=== PATIENT | female | born 1995 | race Caucasian/White ===

== ENCOUNTER 2020-10-17 13:23 | Emergency (ER) | payer OTHER ==
[~2020-10-17] VITALS: Ht 170.2 cm; Wt 70.5 kg
[2020-10-17] MEDS ORDERED: SCOP1PAT2 TOP (13:32)
[2020-10-17] MEDS ORDERED: REGL10TA6 PO (13:32)
[2020-10-17] MEDS ORDERED: NS 1,000 ML IV ONE ×2 (14:30→17:00)
[2020-10-17 15:30] VITALS: BP 118/67
[2020-10-17] MEDS ORDERED: PROMETHAZINE 25MG SUPP PR ONE (16:00)
[2020-10-17 17:33] LABS: BASO % 0.3 % (0.0-1.0); EOS % 0.4 % (0.0-3.0); HEMOGLOBIN 13.2 g/dl (12.0-15.5); LYMPH # 1.8 10^3/uL (1.5-5.0); LYMPH % 19.8 % (24.0-44.0); MEAN CORPUSCULAR HEMOGLOBIN 30.3 pg (27.0-33.0); MONO # 0.5 10^3/uL (0.0-0.8); MONO % 5.4 % (0.0-5.0); NEUTROPHILS # 6.7 10^3/uL (1.5-8.5); NEUTROPHILS % 73.7 % (36.0-66.0); PLATELET COUNT, AUTOMATED 241 10^3/uL (150-450); RED BLOOD COUNT 4.35 10^6/uL (4.00-5.40); WHITE BLOOD COUNT 9.1 10^3/uL (4.0-10.0)
[2020-10-17 18:38] LABS: ALBUMIN 3.9 GM/DL (3.2-5.2); BILIRUBIN,DIRECT 0.1 MG/DL (0.0-0.2); BILIRUBIN,TOTAL 0.5 MG/DL (0.2-1.0); TOTAL PROTEIN 6.8 GM/DL (6.4-8.2)
[2020-10-17] MEDS ORDERED: PROM25SU3 PR (18:45)
== END 2020-10-17 18:54 | disposition home or self-care (01) ==
LOC: M ED 13:23
DX: O21.9 Vomiting of pregnancy, unspecified (principal); O30.001 Twin pregnancy, unspecified number of placenta and unspecified number of amniotic sacs, first trimester; Z3A.01 Less than 8 weeks gestation of pregnancy; Z91.040 Latex allergy status; Z79.899 Other long term (current) drug therapy
CPT/HCPCS: 80047; 80076; 83690; 84702; 85025; 96360; 99284; U0002

== ENCOUNTER 2020-10-30 12:21 | Inpatient (IN) | payer OTHER ==
[~2020-10-30] VITALS: Ht 170.2 cm; Wt 65.0 kg
[~2020-10-30 12:21] MED LIST: PROM25SU3 PR; REGL10TA6 PO; SCOP1PAT2 TOP
[2020-10-30] MEDS ORDERED: ONDANSETRON 4MG/2ML VIAL IV ONE (13:00)
[2020-10-30] MEDS ORDERED: NS 1,000 ML IV ONE (13:00)
[2020-10-30] MEDS ORDERED: GLYCERIN ADULT SUPP PR ONE (13:00)
[2020-10-30 13:54] LABS: BASO % 0.4 % (0.0-1.0); EOS % 0.1 % (0.0-3.0); HEMATOCRIT 39.7 % (36.0-47.0); HEMOGLOBIN 13.5 g/dl (12.0-15.5); LYMPH % 12.5 % (24.0-44.0); MEAN CORPUSCULAR HEMOGLOBIN 30.5 pg (27.0-33.0); MEAN CORPUSCULAR VOLUME 89.8 fl (80.0-96.0); MONO # 0.4 10^3/uL (0.0-0.8); MONO % 4.6 % (0.0-5.0); NEUTROPHILS # 6.4 10^3/uL (1.5-8.5); PLATELET COUNT, AUTOMATED 228 10^3/uL (150-450); RED BLOOD COUNT 4.42 10^6/uL (4.00-5.40); WHITE BLOOD COUNT 7.8 10^3/uL (4.0-10.0)
--- NOTE | 2020-10-30 14:08 | REP ---
INDICATION: abd pain, 8 weeks. COMPARISON: None TECHNIQUE: Transvesical ultrasound FINDINGS: Two separate anechoic structures are seen within the uterus each having increased echoes surrounding them consistent with a decidual reaction. There is echogenic material within each gestational sac consistent with a pole. Fetus A having a mean crown-rump length measurement consistent with an 8 week 4 day gestational age. Doppler interrogation of fetus A shows a heart rate of 169 beats per minute The mean crown-rump length measurement of fetus B is consistent with an 8 week 2 day gestational age. Doppler interrogation of fetus B shows a heart rate of 163 beats per minute. IMPRESSION: Dichorionic diamniotic twin gestation as described above. <Electronically signed by Silverio Tuttle > 10/30/20 [id number]
[2020-10-30 14:35] LABS: ALBUMIN 3.9 GM/DL (3.2-5.2); ALT/SGPT 24 U/L (12-78); BILIRUBIN,DIRECT 0.2 MG/DL (0.0-0.2); BILIRUBIN,TOTAL 0.4 MG/DL (0.2-1.0); BLOOD UREA NITROGEN 13 MG/DL (7-18); CALCIUM LEVEL 9.2 MG/DL (8.5-10.1); CARBON DIOXIDE LEVEL 25 MEQ/L (21-32); CHLORIDE LEVEL 105 MEQ/L (98-107); CK-MB VALUE MASS < 1.0 NG/ML (<3.6); CPK CREATINE PHOSPHOKINASE 35 U/L (26-192); CREATININE FOR GFR 0.75 MG/DL (0.55-1.30); FREE T4 1.41 NG/DL (0.76-1.46); GLOMERULAR FILTRATION RATE > 60.0 (>60); GLUCOSE, FASTING 83 MG/DL (70-100); HCG, SERUM QUANTITATIVE 115713 MIU/ML; LIPASE 237 U/L (73-393); MB/CK RELATIVE INDEX 2.86 (< OR =4); POTASSIUM SERUM 3.8 MEQ/L (3.5-5.1); SODIUM LEVEL 137 MEQ/L (136-145); THYROID STIMULATING HORMONE 0.095 uIU/ML (0.358-3.740); TROPONIN I < 0.02 NG/ML (< 0.10)
[2020-10-30] MEDS ORDERED: METOCLOPRAMIDE INJ 10MG/2ML VIAL (J2765 PER 1) IV ONE (14:45)
[2020-10-30 14:51] LABS: AMPHETAMINES LEVEL URINE NEGATIVE (NEGATIVE); BARBITURATES URINE NEGATIVE (NEGATIVE); BENZODIAZEPINES URINE NEGATIVE (NEGATIVE); CANNABINOIDS URINE NEGATIVE (NEGATIVE); COCAINE METABOLITE URINE NEGATIVE (NEGATIVE); METHADONE URINE NEGATIVE (NEGATIVE); OPIATES URINE NEGATIVE (NEGATIVE); PHENCYCLIDINE URINE NEGATIVE (NEGATIVE)
[2020-10-30] MEDS ORDERED: MULTIVITAMIN -ADULT INJECTION 10 ML, THIAMINE INJection 100 MG, FOLIC ACID 1 MG in NS 1... IV ONE (15:45)
[2020-10-30 16:20] LABS: RSV AMPLIFICATION NEGATIVE (NEGATIVE)
[2020-10-30] MEDS ORDERED: PREN1TAB26 PO (16:46)
[2020-10-30] MEDS ORDERED: PROM25SU3 PR (16:46)
--- NOTE | 2020-10-30 19:07 | IPNPDOC ---
Text Note Date of Service The patient was seen on 10/30/20. NOTE Item Value Date Time Urine Color MARIA 10/30/20 1403 Urine Appearance CLOUDY H 10/30/20 1403 Urine pH 5.0 UNITS 10/30/20 1403 Urine Specific [place] 1.028 10/30/20 1403 Urine Protein 2+ mg/dL H 10/30/20 1403 Urine Glucose (UA) NEGATIVE mg/dL 10/30/20 1403 Urine Ketones 2+ mg/dL H 10/30/20 1403 Urine Blood NEGATIVE 10/30/20 1403 Urine Nitrite NEGATIVE 10/30/20 1403 Urine Bilirubin NEGATIVE 10/30/20 1403 Urine Urobilinogen 2.0 mg/dL H 10/30/20 1403 Urine Leukocyte Esterase NEGATIVE 10/30/20 1403 Urine WBC (Auto) 7 /HPF H 10/30/20 1403 Urine RBC (Auto) 2 /HPF 10/30/20 1403 Urine Hyaline Casts (Auto) 0 /LPF 10/30/20 1403 Urine Bacteria (Auto) NEGATIVE 10/30/20 1403 Urine Squamous Epithelial Cells 3 /HPF 10/30/20 1403 Urine Mucus (Auto) LARGE 10/30/20 1403 Bad table23 YO LMP 08/02/2021 EDC 06/10/2021 AT 8 WEEKS 5 DAYS DI/DI TWINS HYPEREMESIS SEEN IN ED X 3 VISITS. AT HOME HAS ZOFRAN, DICLEGESIS. SCOPOLAMINE PATCH, PHENERGAN SUPPOSITORIES REGLAN BIT STOPPED ALL WAS CONSTIPATED . IN ED 2 BAGS FLUID ONE BANANA BAG FELT BETTER STILL WANTS TO BE ADMITTED. CHEMISTRY NORMAL US NORMAL ANION GAP NORMAL ,NO MEDICAL ISSUES SURGERY T AND A AND WISDOM TEETH AD PHYSICAL THERAPY. PLAN ADMIT ,IV FLUIDS NAUSEA MEDS CONSTIPATION MEDS PO FLUIDS TOLERATED .. PATIENT EXPRESSED UNDERSTANDING IS COVID NEGATIVE VS,Fishbone, I+O VS, Fishbone, I+O Item Value Date Time White Blood Count 7.8 10^3/uL 10/30/20 1327 Red Blood Count 4.42 10^6/uL 10/30/20 1327 Hemoglobin 13.5 g/dl 10/30/20 1327 Hematocrit 39.7 % 10/30/20 1327 Mean Corpuscular Volume 89.8 fl 10/30/20 1327 Mean Corpuscular Hemoglobin 30.5 pg 10/30/20 1327 Mean Corpuscular Hemoglobin Concent 34.0 g/dl 10/30/20 132 Red Cell Distribution Width 12.0 % 10/30/201326 Platelet Count 228 10^3/uL 10/30/20 1327 Immature Granulocyte % (Auto) 0.4 % 10/30/20 1327 Neutrophils (%) (Auto) 82.0 % H 10/30/20 1327 Lymphocytes (%) (Auto) 12.5 % L 10/30/20 1327 Monocytes (%) (Auto) 4.6 % 10/30/20 1327 Eosinophils (%) (Auto) 0.1 % 10/30/20 1327 Basophils (%) (Auto) 0.4 % 10/30/20 1327 Neutrophils # (Auto) 6.4 10^3/uL 10/30/20 1327 Lymphocytes # (Auto) 1.0 10^3/uL L 10/30/20 1327 Monocytes # (Auto) 0.4 10^3/uL 10/30/20 1327 Eosinophils # (Auto) 0.0 10^3/uL 10/30/20 1327 Basophils # (Auto) 0.0 10^3/uL 10/30/20 1327 Laboratory Tests 10/30/20 13:27 Vital Signs Date Time Temp Pulse Resp B/P (MAP) Pulse Ox O2 Delivery O2 Flow Rate FiO2 10/30/20 17:22 97.8 73 18 111/63 (79) 100 Room Air INDICATION: abd pain, 8 weeks. COMPARISON: None TECHNIQUE: Transvesical ultrasound FINDINGS: Two separate anechoic structures are seen within the uterus each having increased echoes surrounding them consistent with a decidual reaction. There is echogenic material within each gestational sac consistent with a pole. Fetus A having a mean crown-rump length measurement consistent with an 8 week 4 day gestational age. Doppler interrogation of fetus A shows a heart rate of 169 beats per minute The mean crown-rump length measurement of fetus B is consistent with an 8 week 2 day gestational age. Doppler interrogation of fetus B shows a heart rate of 163 beats per minute. IMPRESSION: Dichorionic diamniotic twin gestation as described above. Miguel Toure MD Oct 30, 2020 19:04
[2020-10-30] MEDS: LR 1,000 ML IV SCH (19:26)
[2020-10-30] MEDS ORDERED: ONDANSETRON 4MG/2ML VIAL IV SCH (20:00)
[2020-10-30 21:45] VITALS: BP 118/67
[2020-10-30] MEDS: ONDANSETRON 4MG/2ML VIAL IV SCH (22:40)
[2020-10-31 01:00] VITALS: BP 104/59
[2020-10-31] MEDS: LR 1,000 ML IV SCH ×3 (02:46→15:54)
[2020-10-31] MEDS: ONDANSETRON 4MG/2ML VIAL IV SCH ×4 (04:55→23:53)
[2020-10-31 05:37] VITALS: BP 110/59
[2020-10-31] MEDS: MIRALAX *UNIT DOSE* 17GM PACKET PO SCH ×2 (07:33→08:13)
--- NOTE | 2020-10-31 08:12 | ECGEPIP ---
[facility] - ED Test Date: 2020-10-30 Pat Name: RICKY ZAVALA Department: Room: - Gender: Female Entrance Guard: ASHLEY : 1995 Requested By: SONIDO Madrid PA-C Order Number: [id number] Reading MD: Madhu Segovia Measurements Intervals [place] Rate: 64 P: 33 NM: 148 QRS: 65 QRSD: 92 T: 32 QT: 407 QTc: 421 Interpretive Statements SINUS RHYTHM WITH OCCASIONAL VENTRICULAR PREMATURE COMPLEXES NSTTW ABNORMALITY(S) NO PRIORS FOR COMPARISON Electronically Signed on 10-31-2020 8:12:15 EST by Madhu Segovia
[2020-10-31] MEDS: MULTIVITAMIN -ADULT INJECTION 10 ML, THIAMINE INJection 100 MG, FOLIC ACID 1 MG in NS 1... IV SCH (08:13)
[2020-10-31 08:15] VITALS: BP 110/61
[2020-10-31 08:39] LABS: ALBUMIN 2.9 GM/DL (3.2-5.2); ALT/SGPT 18 U/L (12-78); BILIRUBIN,TOTAL 0.5 MG/DL (0.2-1.0); BLOOD UREA NITROGEN 5 MG/DL (7-18); CALCIUM LEVEL 8.1 MG/DL (8.5-10.1); CARBON DIOXIDE LEVEL 22 MEQ/L (21-32); CHLORIDE LEVEL 107 MEQ/L (98-107); GLOMERULAR FILTRATION RATE > 60.0 (>60); GLUCOSE, FASTING 68 MG/DL (70-100); POTASSIUM SERUM 3.5 MEQ/L (3.5-5.1); SODIUM LEVEL 140 MEQ/L (136-145); TOTAL PROTEIN 5.3 GM/DL (6.4-8.2)
[2020-10-31 16:00] VITALS: BP 106/60
[2020-10-31 20:00] VITALS: BP 112/61
[2020-11-01] VITALS: BP 102/63
[2020-11-01] MEDS: LR 1,000 ML IV SCH ×3 (00:58→17:01)
[2020-11-01] MEDS: ONDANSETRON 4MG/2ML VIAL IV SCH ×2 (05:42→10:47)
[2020-11-01 06:00] VITALS: BP 104/64
[2020-11-01] MEDS: MULTIVITAMIN -ADULT INJECTION 10 ML, THIAMINE INJection 100 MG, FOLIC ACID 1 MG in NS 1... IV SCH (08:00)
[2020-11-01 08:29] LABS: ALT/SGPT 20 U/L (12-78); BILIRUBIN,TOTAL 0.5 MG/DL (0.2-1.0); BLOOD UREA NITROGEN 2 MG/DL (7-18); CALCIUM LEVEL 8.4 MG/DL (8.5-10.1); CARBON DIOXIDE LEVEL 24 MEQ/L (21-32); CHLORIDE LEVEL 106 MEQ/L (98-107); CREATININE FOR GFR 0.56 MG/DL (0.55-1.30); GLOMERULAR FILTRATION RATE > 60.0 (>60); GLUCOSE, FASTING 70 MG/DL (70-100); POTASSIUM SERUM 3.3 MEQ/L (3.5-5.1); SODIUM LEVEL 141 MEQ/L (136-145); TOTAL PROTEIN 5.5 GM/DL (6.4-8.2)
[2020-11-01] MEDS: MIRALAX *UNIT DOSE* 17GM PACKET PO SCH (08:45)
[2020-11-01] MEDS ORDERED: DOCU8.6T PO (11:37)
[2020-11-01] MEDS ORDERED: ONDA4INJ4 IV (11:37)
[2020-11-01] MEDS ORDERED: PEG1POW PO (11:37)
[2020-11-01] MEDS ORDERED: PILL CUTTER 1 EACH XX PRN (12:15)
[2020-11-01] MEDS: PROMETHAZINE 25 MG TAB PO PRN ×2 (12:27→18:37)
[2020-11-01 13:55] VITALS: BP 105/57
[2020-11-01] MEDS: ONDANSETRON 4 MG TAB PO SCH ×2 (16:37→22:08)
[2020-11-01 18:42] VITALS: BP 113/63
[2020-11-01 19:56] VITALS: BP 112/69
[2020-11-02] MEDS: LR 1,000 ML IV SCH ×4 (00:29→23:50)
[2020-11-02 00:46] VITALS: BP 95/56
[2020-11-02] MEDS: ONDANSETRON 4 MG TAB PO SCH ×4 (04:13→22:10)
[2020-11-02 08:22] VITALS: BP 108/63
[2020-11-02 08:47] LABS: ALT/SGPT 18 U/L (12-78); BILIRUBIN,TOTAL 0.3 MG/DL (0.2-1.0); BLOOD UREA NITROGEN 2 MG/DL (7-18); CALCIUM LEVEL 8.5 MG/DL (8.5-10.1); CARBON DIOXIDE LEVEL 23 MEQ/L (21-32); CHLORIDE LEVEL 107 MEQ/L (98-107); CREATININE FOR GFR 0.58 MG/DL (0.55-1.30); GLOMERULAR FILTRATION RATE > 60.0 (>60); GLUCOSE, FASTING 82 MG/DL (70-100); POTASSIUM SERUM 3.7 MEQ/L (3.5-5.1); SODIUM LEVEL 140 MEQ/L (136-145); TOTAL PROTEIN 5.4 GM/DL (6.4-8.2)
[2020-11-02] MEDS: MIRALAX *UNIT DOSE* 17GM PACKET PO SCH (09:10)
[2020-11-02] MEDS: MECLIZINE 25 MG TABLET PO PRN (15:00)
[2020-11-02 16:00] VITALS: BP 107/63
--- NOTE | 2020-11-02 18:31 | IPNPDOC ---
Text Note Date of Service The patient was seen on 11/02/20. NOTE Patient seen this evening. Saamra reports improved nausea; zofran seems to work best for her. Dizziness is still present, and she describes it as a "head hunter" sensation along with a room spinning sensation. I ordered meclizine for her earlier today and she reports this has somewhat improved her dizziness. Vitals - VSS, afebrile, normotensive, non tachycardic General - Standing at the bedside with RN, pleasant and conversant, NAD Extremities - No edema Labs Electrolytes stable Samara's nausea has improved but dizziness remains. She describes several near syncopal episodes prior to her hospital admission and this is a major concern for her as she lives alone in the [facility]. Her symptom history seems most consistent with vertigo (perhaps BPPV). Will continue with meclizine. If symptoms still present and/or worsening tomorrow AM, will consider neurology consultation. Samara understands and agrees with plan of care. All questions answered. DO ALONDRA Ferro Fishbone, I+O VS, Oseas, I+O Laboratory Tests 11/02/20 07:35 Vital Signs Date Time Temp Pulse Resp B/P (MAP) Pulse Ox O2 Delivery O2 Flow Rate FiO2 11/02/20 16:00 99.2 57 16 107/63 (78) 100 Room Air I&O- Last 24 Hours up to 6 AM 11/02/20 05:59 Intake Total 1478 ml Output Total 4250 ml Balance -2772 ml JEAN NAM DO Nov 02, 2020 18:31
[2020-11-02 20:00] VITALS: BP 114/66
[2020-11-03 04:00] VITALS: BP 100/59
[2020-11-03] MEDS: ONDANSETRON 4 MG TAB PO SCH ×4 (04:15→22:05)
[2020-11-03] MEDS: MECLIZINE 25 MG TABLET PO PRN ×2 (04:15→16:44)
--- NOTE | 2020-11-03 06:17 | IPNPDOC ---
Text Note Date of Service The patient was seen on 11/03/20. NOTE Patient seen this AM. Samara reports feeling slightly better this morning in terms of dizziness. However, last night when attempting to ambulate the hallway she reports only making it about 10 feet before nearly falling over. Nausea continues to be stable; zoan works best for her. Today she denies any fevers/chills, SOB, chest pain, dysuria, pelvic pain, or vaginal bleeding. Vitals - VSS, afebrile, normotensive (borderline hypotensive), non tachycardic General - Laying in bed, NAD Abdomen - No tenderness Extremities - No edema Labs: Pending CMP this morning Nausea seems to be well managed at this time. Biggest issue is dizziness. History suggestive of BPPV. She appears to be responding well to meclizine, though her symptoms are persisting. Will consult neurology this morning for evaluation. Otherwise, continue regular diet and antiemetics as prescribed. All patient questions answered. DO ALONDRA Ferro,Oseas, I+O VS, Oseas, I+O Laboratory Tests 11/02/20 07:35 Vital Signs Date Time Temp Pulse Resp B/P (MAP) Pulse Ox O2 Delivery O2 Flow Rate FiO2 11/03/20 04:00 97.8 55 16 100/59 (73) 100 Room Air I&O- Last 24 Hours up to 6 AM 11/03/20 06:00 Intake Total 4620 ml Output Total 6300 ml Balance -1680 ml JEAN NAM DO Nov 03, 2020 06:17
[2020-11-03] MEDS: LR 1,000 ML IV SCH (07:07)
[2020-11-03 07:59] LABS: ALT/SGPT 18 U/L (12-78); BILIRUBIN,TOTAL 0.2 MG/DL (0.2-1.0); BLOOD UREA NITROGEN 2 MG/DL (7-18); CALCIUM LEVEL 8.5 MG/DL (8.5-10.1); CARBON DIOXIDE LEVEL 24 MEQ/L (21-32); CHLORIDE LEVEL 107 MEQ/L (98-107); CREATININE FOR GFR 0.56 MG/DL (0.55-1.30); GLOMERULAR FILTRATION RATE > 60.0 (>60); GLUCOSE, FASTING 78 MG/DL (70-100); POTASSIUM SERUM 3.7 MEQ/L (3.5-5.1); SODIUM LEVEL 141 MEQ/L (136-145); TOTAL PROTEIN 5.5 GM/DL (6.4-8.2)
[2020-11-03 09:09] VITALS: BP 102/60
[2020-11-03] MEDS: MIRALAX *UNIT DOSE* 17GM PACKET PO SCH (09:27)
[2020-11-03 16:45] VITALS: BP 108/64
[2020-11-03 20:23] VITALS: BP 122/63
[2020-11-04 04:30] VITALS: BP 101/56
[2020-11-04] MEDS: ONDANSETRON 4 MG TAB PO SCH ×4 (04:30→22:32)
[2020-11-04] MEDS: MECLIZINE 25 MG TABLET PO PRN (04:30)
[2020-11-04 09:00] VITALS: BP 105/60
[2020-11-04] MEDS: MIRALAX *UNIT DOSE* 17GM PACKET PO SCH (09:28)
[2020-11-04 10:10] LABS: ALBUMIN 3.4 GM/DL (3.2-5.2); ALT/SGPT 19 U/L (12-78); BILIRUBIN,TOTAL 0.3 MG/DL (0.2-1.0); BLOOD UREA NITROGEN 4 MG/DL (7-18); CALCIUM LEVEL 8.9 MG/DL (8.5-10.1); CARBON DIOXIDE LEVEL 24 MEQ/L (21-32); CHLORIDE LEVEL 106 MEQ/L (98-107); CREATININE FOR GFR 0.64 MG/DL (0.55-1.30); GLOMERULAR FILTRATION RATE > 60.0 (>60); GLUCOSE, FASTING 83 MG/DL (70-100); POTASSIUM SERUM 3.9 MEQ/L (3.5-5.1); SODIUM LEVEL 139 MEQ/L (136-145); TOTAL PROTEIN 6.1 GM/DL (6.4-8.2)
--- NOTE | 2020-11-04 10:16 | REP ---
INDICATION: 25yo F currently with twins at 8wk with vertigo COMPARISON: None. TECHNIQUE: Axial noncontrast images from the skull base to the vertex with coronal reformations. This CT examination was performed using the following dose reduction techniques: Automated exposure control, adjustment of mA and/or kv according to the patient's size, and use of iterative reconstruction technique. FINDINGS: The ventricles, sulci, and cisterns are normal in position and appearance. Richard-white differentiation is maintained. No acute intracranial hemorrhage, mass/mass effect, pathology or trauma/injury. No evidence for acute infarction. No extra-axial fluid collection. Calvarium is intact. Paranasal sinuses and mastoid air cells are clear. IMPRESSION: No evidence for acute intracranial pathology or trauma/injury. If the patient remains symptomatic consider MRI for further investigation. <Electronically signed by Jose Mcclendon > 11/04/20 1012
--- NOTE | 2020-11-04 10:30 | IPNPDOC ---
Text Note Date of Service The patient was seen on 11/04/20. NOTE Ms. Copeland is a 25yo at 8+6 by 8wk US initially admitted for hyperemesis (now N/V resolved) with continued admission for investigation of sudden onset vertigo like symptoms. She reports that she cannot take more than a few steps without falling over to the side. She reports this happens equally on both sides. She states it feels like she cant set her foot down on the ground because "she is moving." She does not feel like the room is necessarily spinning. On ROS she states she has had headaches since her symptoms started, they are located behind her right eye and across her forehead. She states they do not feel like her migraines. She also stated she has occasionally had tunnel vision and spots in her vision but this has not happened in the past day. She denied n/v/d, cp, sob, varma, visual changes, abd pain, f/c, vb, lof, vaginal dc, urinary sx. 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, hsv, hpv MHX: MTHFR gene mutation, history of pelvic fracture, migraines SHX: T+A ALL: latex, natural rubber MEDS: SOC: denied a/t/d STUDIES 10/30/20 CBC 7.8/13/39 EKG PVCs TSH 0.095 T4 1.41 CMP unremarkable UA 2+ ketones UCx lactobacillus UDS negative COVID negative Flu negative RSV negative TVUS 8+2/8+4 +FHRx2 EXAM GEN: AAOx3, NAD CARDS: non-tachy PULM: no increased WOB ABD: NT, ND, no R/G EXTREM: NT, no edema, no clonus PSYCH: normal affect and insight NEURO EXAM: CN 2-12 in-tact, PERRLA, LE DTRs 2+, no alterations in sensation or muscle strength, normal rapid alternating movement, proprioception, and peripheral vision testing ASSESSMENT Ms. Copeland is a 25yo at 8+6 by 8wk US initially admitted for hyperemesis (now N/V resolved) with continued admission for investigation of sudden onset vertigo like symptoms. I called Dr. Pedroza (nurse receptionist for neurology today) and requested a consult. He instructed me to obtain a STAT CT of the head and if normal consult PT for vestibular therapy instead. I discussed with the patient that with shielding and it being a head CT there is very low risk but still technically a risk to her babies as she is in the 1T and the patient would like to proceed. On exam there were no neurologic abnormalities. I did not witness gait abnormalities when the patient ambulated the room. Her VS have been normal. As N/V has improved and she is PO tolerant will continue on current regimen. Plan - STAT CT head withouot contract per neuro, if normal consult to PT for vestibular therapy - continue current regimen for nausea control - continue regular diet - ambulation only with nursing assistance - SCDs while not ambulating - will continue meclizine per neuro Diana VS,Fishbone, I+O VS, Fishbone, I+O Vital Signs Date Time Temp Pulse Resp B/P (MAP) Pulse Ox O2 Delivery O2 Flow Rate FiO2 11/04/20 09:00 98.5 57 18 105/60 (75) 100 Room Air I&O- Last 24 Hours up to 6 AM 11/04/20 06:00 Intake Total 2950 ml Output Total 2900 ml Balance 50 ml NIDIA REEVES DO Nov 04, 2020 10:30
[2020-11-04 17:25] VITALS: BP 108/64
[2020-11-04 20:00] VITALS: BP 119/80
[2020-11-05 00:02] VITALS: BP 119/62
[2020-11-05 04:14] VITALS: BP 104/58
[2020-11-05] MEDS: ONDANSETRON 4 MG TAB PO SCH ×3 (05:01→16:00)
--- NOTE | 2020-11-05 07:00 | IPNPDOC ---
Text Note Date of Service The patient was seen on 11/05/20. NOTE Ms. Copeland is a 25yo at 9+0 by 8wk US initially admitted for hyperemesis (now N/V resolved) with continued admission for investigation of sudden onset vertigo like symptoms. She reports that she cannot take more than a few steps without falling over to the side. She reports this happens equally on both sides initially but now feels like it happens more to the right. She states it feels like she cant set her foot down on the ground because "she is moving." She does not feel like the room is necessarily spinning. On ROS she states she has had headaches since her symptoms started, they are located behind her right eye and across her forehead. Her only new symptom overnight is some blurring of her vision only in her right eye. She states they do not feel like her migraines. She also stated she has occasionally had tunnel vision and spots in her vision but this has not happened in the past day. She denied n/v/d, cp, sob, abd pain, f/c, vb, lof, vaginal dc, urinary sx. 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 Copeland is a 25yo at 9+0 by 8wk US initially admitted for hyperemesis (now N/V resolved) with continued admission for investigation of sudden onset vertigo like symptoms. I called Dr. Pedroza (neurology) and requested a consult and he saw the patient yesterday, recommendations pending. He instructed me to obtain a STAT CT of the head which was normal and consult PT for vestibu lar therapy. They reported they wanted her to hold the meclizine this morning to evaluate her symptom changes without it. Will proceed with this plan this morning and await further recommendations. Her VS have been normal. As N/V has improved and she is PO tolerant will continue on current regimen. Plan - awaiting further recommendations from neurology and PT - continue current regimen for nausea control - continue regular diet - ambulation only with nursing assistance - SCDs while not ambulating - will hold meclizine per PT this morning Diana VS,Geraldbone, I+O VS, Geraldbone, I+O Laboratory Tests 11/04/20 09:11 Vital Signs Date Time Temp Pulse Resp B/P (MAP) Pulse Ox O2 Delivery O2 Flow Rate FiO2 11/05/20 04:14 98.8 57 18 104/58 (73) 97 11/04/20 20:00 Room Air I&O- Last 24 Hours up to 6 AM 11/05/20 06:00 Intake Total 1560 ml Output Total 3950 ml Balance -2390 ml NIDIA REEVES DO Nov 05, 2020 07:00
[2020-11-05 08:09] LABS: ALBUMIN 3.2 GM/DL (3.2-5.2); ALT/SGPT 16 U/L (12-78); BILIRUBIN,TOTAL 0.4 MG/DL (0.2-1.0); BLOOD UREA NITROGEN 6 MG/DL (7-18); CALCIUM LEVEL 8.7 MG/DL (8.5-10.1); CARBON DIOXIDE LEVEL 24 MEQ/L (21-32); CHLORIDE LEVEL 105 MEQ/L (98-107); CREATININE FOR GFR 0.62 MG/DL (0.55-1.30); GLOMERULAR FILTRATION RATE > 60.0 (>60); GLUCOSE, FASTING 82 MG/DL (70-100); POTASSIUM SERUM 3.7 MEQ/L (3.5-5.1); SODIUM LEVEL 138 MEQ/L (136-145); TOTAL PROTEIN 5.9 GM/DL (6.4-8.2)
[2020-11-05 09:15] VITALS: BP 119/71
[2020-11-05] MEDS: MIRALAX *UNIT DOSE* 17GM PACKET PO SCH (09:47)
--- NOTE | 2020-11-05 12:40 | OBDS ---
[facility] Obstetrical Discharge Sum. Obstetrical Discharge Summary Date: Nov 05, 2020 Time: 12:30 : 1 Term: 0 Pre-term: 0 Abortions: 0 Livin A/P, Post Course List any complications Admission diagnosis: Hyperemesis, Di/Di twins Discharge diagnosis: Hyperemesis, Di/Di twins, vertigo Condition at Discharge: Stable Discharge Instructions: Home/other Activity: Rest with out of bed with walker Diet: Regular Medications: Zofran PO Follow-up: ENT with Dr. Chapa on 11/08/2020 at 1030 and in 1 week at [facility] Other: Referrals to PT for vestibular therapy given She is a 25 yo at 13w4d with HANK of 09 MAY 2021 who presented for hyperemesis with complicated by Di/Di twins. She developed sudden onset of vertigo like symptoms. She was evaluated by neurology with a normal CT and recommendations to have outpatient vestibular therapy. She was evaluated by PT with recommendations for a 2 wheeled walker and outpatient vestibular therapy. She will have outpatient consult with ENT on 11/08/2020 at 1030. She reports that zofran has worked well to control vomiting and she has been able to eat meals during her stay in the hospital. She will have follow up in [facility] clinic in 1 week[address] After discussion with Dr. Toure regarding patient status, she is to not return to work until she has been cleared by [facility]. I discussed all of these recommendations with the patient. I answered all of her questions and she verbalized understanding of the plan. Plan is to discharge to home No driving or operating any heavy machinery She may ambulate with the use of a walker or with assistance She is to keep all follow up appointments Recommended to continue her antinausea regimen while at home. She is to return if her symptoms worsen or persist. JAYJAY PENA CNM Nov 05, 2020 12:40
== END 2020-11-05 16:25 | disposition home or self-care (01) | DRG 833 ==
LOC: M ED 12:21 → M ED INP 18:33 → M PED 21:59
PROVIDERS: ADMIT Obstetrics & Gynecology; ATTEND Registered Nurse Maternal Newborn
DX: O21.0 Mild hyperemesis gravidarum (principal); Z3A.08 8 weeks gestation of pregnancy; O30.041 Twin pregnancy, dichorionic/diamniotic, first trimester; R42 Dizziness and giddiness; O26.891 Other specified pregnancy related conditions, first trimester

== ENCOUNTER 2020-11-19 13:51 | Observation (INO) | payer OTHER ==
[~2020-11-19] VITALS: Ht 170.2 cm; Wt 63.0 kg
[~2020-11-19 13:51] MED LIST changes: +DOCU8.6T PO; +ONDA4INJ4 IV; +PEG1POW PO; +PREN1TAB26 PO
--- OUTSIDE RECORDS SUMMARY | 2020-11-19 14:01 | CCD ---
Author Author [facility] Organization [facility] Address Unknown Phone Unavailable Care Team Providers Care Food Counter Worker Name Role Phone RAMONSoham BAH Unavailable Unavailable UNKNOWN, CLINIC JNU Unavailable Unavailable Re-disclosure Warning The records that you are about to access may contain information from federally-assisted alcohol or drug abuse programs. If such information is present, then the following federally mandated warning applies: This information has been disclosed to you from records protected by federal confidentiality rules (42 CFR part 2). The federal rules prohibit you from making any further disclosure of this information unless further disclosure is expressly permitted by the written consent of the person to whom it pertains or as otherwise permitted by 42 CFR part 2. A general authorization for the release of medical or other information is NOT sufficient for this purpose. The Federal rules restrict any use of the information to criminally investigate or prosecute any alcohol or drug abuse patient.The records that you are about to access may contain highly sensitive health information, the redisclosure of which is protected by Article 27-F of the [place] State Public Health law. If you continue you may have access to information: Regarding HIV / AIDS; Provided by facilities licensed or operated by the [facility] Office of Mental Health; or Provided by the [facility] Office for People With Developmental Disabilities. If such information is present, then the following [facility] mandated warning applies: This information has been disclosed to you from confidential records which are protected by state law. State law prohibits you from making any further disclosure of this information without the specific written consent of the person to whom it pertains, or as otherwise permitted by law. Any unauthorized further disclosure in violation of state law may result in a fine or assisted sentence or both. A general authorization for the release of medical or other information is NOT sufficient authorization for further disc losure. Encounters Encounter Providers Location Date Indications Data Source(s ) Emergency Attender: FRANCIA NAVARROJONOCOConsultant: JUN UNKNOWN 10/14/2020 01:41:00 PM EST - 10/14/2020 04:58:00 PM [facility] Patient discharged. Medications Medication Brand Name Start Date Product Form Dose Route Admi nistrative Instructions Pharmacy Instructions Status Indications Reaction Description Data Source(s) 5 mg 10/14/2020 12:00:00 AM EST tablet 6 TAKE ONE TABLET BY MOUTH EVERY EIGHT HOURS NEEDED FOR NAUSEA TAKE ONE TABLET BY MOUTH EVERY EIGHT MAADN RS NEEDED FOR NAUSEA SOLD: 10/14/2020 [facility] Insurance Providers Payer name Policy type / Coverage type Policy ID Covered libertarian ID Covered libertarian's relationship to oden Policy Oden Plan Information [facility] ACTIVE DUTY [id number] SP [id number] [employer] [facility] REG O [id number] S [id number] [facility] - O/P [id number] 18 [id number] Problems, Conditions, and Diagnoses Code Display Name Description Problem Type Effective Dates Data Source(s) A82954 Latex allergy status Latex allergy status Diagnosis 10/14/2020 01:41:00 PM [facility] Z3A10 10 weeks gestation of 10 weeks gestation of Diagnosis 10/14/2020 01:41:00 PM [facility] O219 Vomiting of , unspecified Vomiting of p regnancy, unspecified Diagnosis 10/14/2020 01:41:00 PM [facility] Results ID Date Data Source [id number] 10/30/2020 03:36:00 PM EST [facility] Name Value Range Interpretation Code Description Data Odette rce(s) Supporting Document(s) SARS coronavirus 2 RNA [Presence] in Res piratory specimen by NANCY with probe detection NEGATIVE [facility] This lab was ordered by [facility] a nd reported by [facility]. ID Date Data Source [id number] 10/19/2020 08:45:00 AM EST [facility] [address] [place] [address] PHONE: [phone] FAX: [phone] Name .................. : LUCAS GARCÍA Acct Number.................. : [id number] ROOM. ................. : [facility] Number ................... : [id number] Stay type ............. : E/R Discharge Date......... ... : 10/14/20 Admit Date ......... : 10/14/20 Admit Phys .................... : LATASHA Date of ....... : 1995 Family Phys ................... : UNKNOWN Phone .................. : [phone] Age ................................ : 25 Film# .................. .:[id number] Sex ................................. : F Unsigned transcriptions are preliminary reports and do not represent a medical or legal document US OB 1ST TRI UP TO 14 WEEKS 21026 COMPLETE:10/14/20 15:02 KNB 1674 Reason(s): NV abd pain 10 weks gestation US OB 1ST TRI UP TO 14 [place]KS [place] [address] COMPLETE:10/14/20 15:02 KNB 1678 (REASON FOR OBS: NV abd pain OBSTETRICAL ULTRASOUND, 10/14/20: FINDINGS: There is a viable diamniotic twin with estimated gestational ages of 6 weeks and 0 days. The estimated delivery date is June 09, 2021. Twin A has a heart rate of 116 beats per minute. Twin B has a heart rate of 120 beats per minute. Adjacent to twin B, tiny subchorionic hemorrhage is seen with maximal diameter of 4 mm. A 3.1 x 2.9 x 2.9 cm cyst is seen in the left ovary, likely benign corpus gluteal cyst. IMPRESSION: Viable diamniotic twin with estimated gestational ages of 6 weeks and 0 days. heart rate twin A 116 beats per minute. heart rate twin B 120 beats a minute. Tiny subchorionic bleed to twin B. A 3.1 cm cyst left ovary, likely benign corpus gluteal cyst. Electronically Reviewed and Signed By Martita Benitez MD , 10/19/20 08:45, KGG Transcribe Initials: KATHLEEN, Transcribe Date: 10/18/20 13:32, Dictation Date: Copy for: [facility] via fax Copy for: EMERGENCY DEPT via modem Copy for: 710 MED REC DISCHARGED Page 1 of 1 Name Value Range Interpretation Code Description Data Odette rce(s) Supporting Document(s) ID Date Data Source [id number] 10/19/2020 08:45:00 AM EST [facility] [address] [place] [address] PHONE: [phone] FAX: [phone] Name .................. : LUCAS GARCÍA Acct Number.................. : [id number] ROOM. ................. : TR-08 MR Number ................... : [id number] Stay type ............. : E/R Discharge Date......... ... : 10/14/20 Admit Date ......... : 10/14/20 Admit Phys .................... : RAMONNIURKA Date of ....... : 1995 Family Phys ................... : UNKNOWN Phone .................. : [phone] Age ................................ : 25 Film# .................. .:[id number] Sex ................................. : F Unsigned transcriptions are preliminary reports and do not represent a medical or legal document US OB 1ST TRI UP TO 14 WEEKS 17789 COMPLETE:10/14/20 15:02 KNB 1673 Reason(s): NV abd pain 10 weks gestation US OB 1ST TRI UP TO 14 WKS AD [address]40 COMPLETE:10/14/20 15:02 KNB 1678 (REASON FOR OBS: NV abd pain OBSTETRICAL ULTRASOUND, 10/14/20: FINDINGS: There is a viable diamniotic twin with estimated gestational ages of 6 weeks and 0 days. The estimated delivery date is June 09, 2021. Twin A has a heart rate of 116 beats per minute. Twin B has a heart rate of 120 beats per minute. Adjacent to twin B, tiny subchorionic hemorrhage is seen with maximal diameter of 4 mm. A 3.1 x 2.9 x 2.9 cm cyst is seen in the left ovary, likely benign corpus gluteal cyst. IMPRESSION: Viable diamniotic twin with estimated gestational ages of 6 weeks and 0 days. heart rate twin A 116 beats per minute. heart rate twin B 120 beats a minute. Tiny subchorionic bleed to twin B. A 3.1 cm cyst left ovary, likely benign corpus gluteal cyst. Electronically Reviewed and Signed By Martita in MD Eli , 10/19/20 08:45, KGG Transcribe Initials: SSR, Transcribe Date: 10/18/20 13:32, Dictation Date: Copy for: [facility] via fax Copy for: EMERGENCY DEPT via modem Copy for: 710 MED REC DISCHARGED Page 1 of 1 Name Value Range Interpretation Code Description Data Odette rce(s) Supporting Document(s) ID Date Data Source [id number] 10/17/2020 02:50:00 PM EST [facility] Name Value Range Interpretation Code Description Data Odette rce(s) Supporting Document(s) SARS coronavirus 2 RNA [Presence] in Res piratory specimen by NANCY with probe detection NEGATIVE [facility] This lab was ordered by [facility] a nd reported by [facility]. ID Date Data Source [id number] 10/14/2020 01:41:00 PM EST [facility] 1 OrderSheet [facility] Emergency Department [address] [place] [address] Phone #: [phone]- [phone] 10/14/2020 13:24 Patient: RICKY ZAVALA Sex: F : 1995 Age: 25yWEIGHT:71.4 kg (M) HEIGHT:67 inches (M) BMI:24.7ALLERGIES: Latex, No Known Drug AllergyCHIEF COMPLAINT: nausea, vomiting, diarrheaDIAGNOSIS: Patient currently , Discomfort of pregnancyLAB ORDERSOrder Description Priority Entered Acknowledged InitialedBeta-HCG, Quant STAT 13:51 10/14/2020 14:25 Campbell,Serum Valdemar MORALES; WandaCBC w Diff STAT 13:51 10/14/2020 14:25 Campbell, Valdemar MORALES; WandaCMP STAT 13:51 10/14/2020 14:25 CampbellValdemar; WandaLactic Acid STAT 13:51 10/14/2020 14:25 Campbell, Valdemar MORALES; WandaLipase STAT 13:51 10/14/2020 14:25 Campbell, Valdemar MORALES; WandaUrinalysis (Clean STAT 13:51 10/14/2020 15:21 PeterCatgrgeorio) Valdemar MORALES; Ramón BEACHType Rh STAT 13:51 10/14/2020 14:25 Campbell, Valdemar MORALES; BenjamindaInfluenza Nasal A B STAT 15:55 10/14/2020 Cancelled: Other 17:06 Francia Blank ;Culture, Urine STAT 16:11 10/14/2020 17:04 Campbell,(Urine, Clean Valdemar MORALES; Floyd)DIAGNOSTIC STUDY ORDERSOrder Description Priority Entered Acknowledged InitialedUS OB 1ST TRI UP STAT 13:51 10/14/2020 14:54 PeterTO 14 WEEKS Valdemar MORALES; Ramón RN(Oxygen?(No))(IV?(Yes)) Reason for Study: NV abd pain 10 weks gestationMEDICATION/IV/DRIP/FLUID ORDERSOrder Description Priority Entered Acknowledged Initialed 2 OrderSheet [facility] Emergency Department [address] [place] [address] Phone #: ext- [phone] 10/14/2020 13:24 Patient: RICKY ZAVALA Sex: F : 1995 Age: 25yReglan IVP 10 mg 13:51 10/14/2020 14:23 CampbellValdemar IV : Bolus 1000 13:51 10/14/2020 14:19 Campbell,mL, then 100 mL/hr Valdemar MORALES; Desiree(NOW x1)GENERAL ORDERSOrder Description Priority Entered Acknowledged InitialedNPO 13:51 10/14/2020 14:25 CampbellValdemar ritter; BenjamindaWarm blanket 13:51 10/14/2020 14:06 Valdemar Campbell; Kendrick 13:51 10/14/2020 14:25 Valdemar Campbell; Desiree[Electronically signed by Desiree Campbell (17:07 10/14/2020)][Electronically signed by Vlademar Islas (18:55 10/14/2020)][Electronically locked by Desiree Campbell (17:07 10/14/2020)] Name Value Range Interpretation Code Description Data Odette rce(s) Supporting Document(s) ID Date Data Source [id number] 10/14/2020 01:41:00 PM EST [facility] 1 Medication Reconciliation Report [facility] Emergency Department [address] [place] [address] Phone #: [phone]- [phone] 10/14/2020 13:24 Patient: RICKY ZAVALA Sex: F : 1995 Age: 25yWeight: 71.4 kgHeight/Length: 67 in.BMI: 24.7ALLERGIES: Latex, No Known Drug AllergyThe patient's Home Medications are listed below:CONTINUE TAKING THE FOLLOWING MEDICATIONS: Vitamins OralThe source(s) of the original Home Medication information:Not obtained.The following Medications were given to the patient in the Emergency Department:NS [IV] IV Fluids bolus 0, then 980 mL/hr, administered: 14:19 10/14/2020eglan [IVP] IVP 10 mg, administered: 14:23 10/14/2020The following Medications were prescribed to the patient:Reglan 10 mg tablet Take 1 tablet every eight hours as needed for 2 days -- for nausea/vomiting.Dispense 6 tablet. Refills: 0. Substitution permitted.Pharmacy - [facility] [address] ; [place] [address]. .Reglan 10 mg tablet Take 1 tablet every eight hours as needed for 2 days -- for nausea. Dispense 6tablet. Refills: 0. Substitution permitted.Pharmacy - [facility] - [address] ; [place], [place] [id number]. . -- ANDREW Mccoy Name Value Range Interpretation Code Description Data Odette rce(s) Supporting Document(s) ID Date Data Source [id number] 10/14/2020 01:41:00 PM [place] [address] Medication Administration Record [facility] Emergency Department [address] [place] [address] Phone #: [phone]- [phone] 10/14/2020 13:24 Patient: RICKY ZAVALA Sex: F : 1995 Age: 25yWeight: 71.4 kgHeight/Length: 67 inBMI: 24.7ALLERGIES: Latex, No Known Drug Allergy Date/Time Medication Administered Medication OrderedGiven REGLAN [IVP] (METOCLOPRAMIDE Reglan IVP 10 mg14:23 10/14/2020 HCL)Desiree Campbell, Dose: 10 mg IVP Site: #1 right forearmStart NS [IV] NS IV : Bolus 1000 mL, then 90899:19 10/14/2020 Dose: IV Fluids mL/hr (NOW x1)Desiree Campbell, Rate: 980 mL/hr over 1 hour(s)---- Dispensed: 1000 mL bagStop Site: #1 right :45 10/14/2020Desiree leung, Name Value Range Interpretation Code Description Data Odette rce(s) Supporting Document(s) ID Date Data Source [id number] 10/14/2020 01:41:00 PM [facility] 1 General Instructions [facility] Emergency Department [address] [place] [address] Phone #: ext- [phone] 10/14/2020 13:24 Patient: RICKY ZAVALA Sex: F : 1995 Age: 25yFirst trimester ; positive test in emergency department. Ultrasound demonstrated anintrauterine .First trimester discomforts of - nausea and vomiting. Positive test in the emergencydepartment.INSTRUCTIONSNo strenuous act ivity. Rest at home for one days. Do not work for one day.Drink plenty of fluids for the next 48 hours as needed. No sexual contact until symptoms resolve. Do notsmoke. No alcohol.Warnings: Further evaluation is necessary.GENERAL WARNINGS: Return or contact your physician immediately if your condition worsens orchanges unexpectedly, if not improving as expected, or if other problems arise. Specifically return if pain,vomiting, bleeding, breathing difficulty or fever.Your Current Medications: Your current home medications have been reviewed.CONTINUE TAKING THE FOLLOWING MEDICATIONS: Vitamins Or al.Prescription Medications:Reglan 10 mg tablet Take 1 tablet every eight hours as needed for 2 days -- for nausea/vomiting.Dispense 6 tablet. Refills: 0. Substitution permitted.Pharmacy - [facility] [address] ; [place] [address]. .Reglan 10 mg tablet Take 1 tablet every eight hours as needed for 2 days -- for nausea. Dispense 6tablet. Refills: 0. Substitution permitted.Pharmacy - [facility] [address], [place] [id number]. .Follow-up:Follow up with your healthcare provider in one day as scheduled even if well. Reason for referral: f/u withOB in [place] as scheduled tomorrow. Summary of care provided to patient via paper.Understanding of the discharge instructions verbalized by patient. Expected course of illness, dischargeinstructions, activity level, prescriptions x1, follow-up appointment and risks and benefits of treatmentreviewed with patient and understanding verbalized. Agrees to plan of care. 2 General Instructions [facility] Emergency Department [address] [place] [address] Phone #: ext- [phone] 10/14/2020 13:24 Patient: RICKY ZAVALA Sex: F : 1995 Age: 25y ADDITIONAL INFORMATIONPregnancyYour exam today shows that you are . symptomsDuring your body's hormones change. This causes physical and emotional changes. Thisis normal. Knowing what to expect is important for your piece of mind and so you know when to seekhelp for a problem. Here are some of the most common symptoms: Morning sickness or nausea. This can happen any time of the day or night. Tender, swollen breasts Need to urinate frequently Tiredness or fatigue Dizziness Indigestion or heartburn Food cravings or turn-offs 3 General Instructions [facility] Emergency Department [address] [place] [address] Phone #: ext- [phone] 10/14/2020 13:24 Patient: RICKY ZAVALA Sex: F : 1995 Age: 25y Constipation Emotional changes. This can range from anxiety to excitement to depression.General care for a healthy pregnancyHere are things you can do to help make sure your baby is born healthy: Rest when you feel tired. This is especially true in the later months of . Drink more fluids. Your body needs more fluids than you may be used to. Drink 8 to10 glasses of juice, milk, or water every day. Eat well-balanced meals. Eat at regular times to give your body enough protein. You can expect to gain about 30 pounds during the . Don't try to diet or lose weight while you are . Take a vitamin every day. This helps you meet the extra nutritional needs of . Don't take any other medicine during your unless your healthcare provider tells you to. This includes prescription medicines and those you buy over the counter. Many medicines can harm the growing baby. If you have nausea or vomiting, don't eat greasy or fried foods. Eat several smaller meals throughout the day rather than 3 large meals. If you smoke, you must stop. The nicotine you breathe in goes right to the baby. Stay away from alcohol, even in moderate amounts. Daily drinking will harm your baby and can cause permanent brain damage. Don't use recreational drugs, especially cocaine, crack, and heroin. These will harm your baby. Also avoid marijuana. If you were using recreational drugs or prescribed medicine when you found out that you were , talk with your healthcare provider about possible effects on your growing baby. If you have medical problems that you need to take medicine for, talk with your healthcare provider.Follow-up careCall your healthcare provider to arrange for care. care is important. You can seeyour family provider, a specialist (spraying machine operator), a special distribution clerk, or a primary care clinic.When to seek medical advice 4 General Instructions [facility] Emergency Department [address] [place] [address] Phone #: ext- [phone] 10/14/2020 13:24 [id number] Sex[facility] F : 1995 Age: 25yCall your healthcare provider right away if any of these occur: Vaginal bleeding Pain in your belly (abdomen) or back that is moderate or severe Lots of vomiting, or you can't keep any fluids down for 6 hours Burning feeling when you urinate Headache, dizziness, or rapid weight gain Fever Vision changes or blurred vision [phone] [employer]. [address] [place] [address], [place] [address]. All rights reserved. This information is not intended as asubstitute for professional medical care. Always follow your healthcare professional's instructions.PregnancyYour exam today shows that you are . symptomsDuring your body's hormones change. This causes physical and emotional changes. Thisis normal. Knowing what to expect is important for your piece of mind and so you know when to seekhelp for a problem. Here are some of the most common symptoms: 5 General Instructions [facility] Emergency Department [address] [place] [address] Phone #: ext- [phone] 10/14/2020 13:24 Patient: RICKY ZAVALA Sex: F : 1995 Age: 25y Morning sickness or nausea. This can happen any time of the day or night. Tender, swollen breasts Need to urinate frequently Tiredness or fatigue Dizziness Indigestion or heartburn Food cravings or turn-offs Constipation Emotional changes. This can range from anxiety to excitement to depression.General care for a healthy pregnancyHere are things you can do to help make sure your baby is born healthy: Rest when you feel tired. This is especially true in the later months of . Drink more fluids. Your body needs more fluids than you may be used to. Drink 8 to10 glasses of juice, milk, or water every day. Eat well-balanced meals. Eat at regular times to give your body enough protein. You can expect to gain about 30 pounds during the . Don't try to diet or lose weight while you are . Take a vitamin every day. This helps you meet the extra nutritional needs of . Don't take any other medicine during your unless your healthcare provider tells you to. This includes prescription medicines and those you buy over the counter. Many medicines can harm the growing baby. If you have nausea or vomiting, don't eat greasy or fried foods. Eat several smaller meals throughout the day rather than 3 large meals. If you smoke, you must stop. The nicotine you breathe in goes right to the baby. Stay away from alcohol, even in moderate amounts. Daily drinking will harm your baby and can cause permanent brain damage. Don't use recre ational drugs, especially cocaine, crack, and heroin. These will harm your baby. Also avoid marijuana. 6 General Instructions [facility] Emergency Department [address] [place] [address] Phone #: ext- [phone] 10/14/2020 13:24 Patient: RICKY ZAVALA Sex: F : 1995 Age: 25y If you were using recreational drugs or prescribed medicine when you found out that you were , talk with your healthcare provider about possible effects on your growing baby. If you have medical problems that you need to take medicine for, talk with your healthcare provider.Follow-up careCall your healthcare provider to arrange for care. care is important. You can seeyour family provider, a specialist (spraying machine operator), a special distribution clerk, or a primary care clinic.When to seek medical adviceCall your healthcare provider right away if any of these occur: Vaginal bleeding Pain in your belly (abdomen) or back that is moderate or severe Lots of vomiting, or you can't keep any fluids down for 6 hours Burning feeling when you urinate Headache, dizziness, or rapid weight gain Fever Vision changes or blurred vision [phone] [employer]. [address] [place] [address], [place] [address]. All rights reserved. This information is not intended as asubstitute for professional medical care. Always follow your healthcare professional's instructions. You have been given the following additional information: , New Dx , New Dx No strenuous activity. Rest at home for one days. Do not work for one day.(Electronically signed by ANDREW Mccoy 10/14/2020 18:55) Name Value Range Interpretation Code Description Data Odette rce(s) Supporting Document(s) ID Date Data Source [id number] 10/14/2020 01:41:00 PM EST [facility] 1 Clinical Report - Nurses [facility] Emergency Department [address] [place] [address] Phone #: ext- [phone] 10/14/2020 13:24 Patient: RICKY ZAVALA Sex: F : 1995 Age: 25yTRIAGEArrived by private vehicle. Historian: patient.Acuity: LEVEL 3.Chief Complaint: NAUSEA, VOMITING and DIARRHEA.Alert. No acute distress.Onset. (1 weeks). ( Pt is 10 weeks based on her LMP. She has been having severe morningsickness for 1 week with vomiting 6-7 times a day and diarrhea. She says is unable to keep any liquids orfood down. She has tried naomi earnestine, acupressure bands, pops, and bland food. She isscheduled to have her first ob appointment tomorrow.).SEPSIS SCREEN: SIRS SCREEN NEGATIVE. SEPSIS SCREEN NEGATIVE. No suspected or confirmedsigns of infection present.KEMAR COMA SCORE: 15- eyes open- spontaneous (4); best verbal response- oriented (5); bestmotor response- obeys commands (6). --13:39 10/14/20 Liseth Markham R.N.13:31 10/14/20. BP: 128/80. MAP: 96. HR: 64. RR: 18. O2 saturation: 100%. Temp: 98.2 F. Pain levelnow: 0/10. --13:39 10/14/20 Liseth Markham R.N.Weight: 71.4 kg measured. Height/Length: 67 inches Measured. BMI: 24.7. --13:36 10/14/20 Liseth Markham R.N.MedicationsPrenatal Vitamins Oral. --13:34 10/14/20 Liseth Markham R.N.AllergiesNo Known Drug Allergy. --13:35 10/14/20 Liseth Markham R.N.Latex. --13:35 10/14/20 Liseth Markham R.N.PROBLEMS:Pelvic Fracture. --13:35 10/14/20 Liseth Markham R.N.ADDITIONAL SURGERIES:Tonsillectomy. --13:35 10/14/20 Liseth Markham R.N.HistoryPAST MEDICAL HX: Immunizations: up-to-date. Last normal menstrual period- Aug 02. 1. Para0. Abortions 0. Currently . 2 Clinical Report - Nurses [facility] Emergency Department [address] [place] [address] Phone #: ext- [phone] 10/14/2020 13:24 Patient: RICKY ZAVALA Sex: F : 1995 Age: 25y SOCIAL HX: Never smoker. No alcohol use or drug use. No recent travel. No known contact with a sick individual. The patient was offered HIV testing but declined and hepatitis C testing but declined. The patient has not traveled outside the [place] Infectious disease exposure: No infectious disease exposure. The patient was not exposed to C-diff, MRSA, VRE, CRE or Coronavirus. SELF HARM ASSESSMENT: Self harm assessment was performed. The patient answered "no" to the question(s) "Have you recently felt down, depressed, or hopeless?", "Do you have thoughts of harming or killing yourself?", "Do you have a plan for harming or killing yourself?", "Have you recently had thoughts about harming or killing others?", "Do you have any dangerous items in your possession?", "Have you noticed less interest or pleasure in doing things?", "Are you here because you tried to hurt yourself?" and "Have you ever tried to hurt yourself before today?". ABUSE ASSESSMENT: No report of abuse. NUTRITIONAL RISK ASSESSMENT: The nutritional risk assessment revealed no deficiencies. FUNCTIONAL ASSESSMENT: Functional assessment: no impairments noted. LEARNING NEEDS ASSESSMENT: The learning needs assessment revealed no barriers. SKIN INTEGRITY ASSESSMENT: Skin integrity risk assessment completed. No skin integrity risk identified. --13:39 10/14/20 Liseth Markham R.N. FALL RISK ASSESSMENT: Fall risk assessment complete d. No risk factors identified. --13:39 10/14/20 Liseth Markham R.N. Interventions To treatment room. --13:39 10/14/20 Liseth Markham R.N.PHYSICAL ASSESSMENTGENERAL / NEURO / PSYCH: Alert. Oriented X 4. Appears in no acute distress.RESPIRATORY: Respirations not labored. Breath sounds within normal limits.GI / : The patient has had intermittent episodes of nausea (10 weeks ). She has diarrhea (x 4today). This has occurred several times. Abdomen soft. Bowel sounds within normal limits.SKIN: Skin is pale. Skin is warm and dry. --14:27 10/14/20 Desiree Campbell.NURSING PROGRESS NOTESPatient gowned. Head of bed elevated. Reassurance given. Call light placed in reach. Side rails up.Patient ready for evaluation- ED physician notified. --13:40 10/14/20 Liseth Markham R.N. 14:04 10/14/2020 Site #1 started via IV in the right forearm with an 20g angiocath; two attempts. Saline lock flushed with 10 mL saline. --14:19 10/14/20 Desiree Campbell 3 Clinical Report - Nurses [facility] Emergency Department [address] [place] [address] Phone #: ext- [phone] 10/14/2020 13:24 Patient: CIEMINSKI, RICKY Sex: F : 1995 Age: 25y 14:19 10/14/2020 Started bag #1 1000 mL IV Fluids NS; at 980 mL/hr over 1 hour(s) via site #1 via IV pump. Allergies verified and confirmed 5 rights. IV patency established. IV site checked: no pain, redness, or swelling. IV flushed thoroughly pre- and post-medication administration. Information reviewed with patient including reason for taking this medication, signs of allergic reaction and precautions. Verbalizes understanding. --14:19 10/14/20 Campbell, Desiree 14:23 10/14/2020 Reglan (Metoclopramide HCl) IVP 10 mg given over 3 minute(s) via site #1. Allergies verified and confirmed 5 rights. IV patency established. IV site checked: no pain, redness, or swelling. IV flushed thoroughly pre- and post- medication administration. IVP given by RN. Information reviewed with patient including reason for taking this medication, signs of allergic reaction and precautions. Verbalizes understanding. --14:23 10/14/20 Campbell, Desiree 14:54 . Patient returned from sonogram by wheelchair with radiology orderly. --15:00 10/14/20 Campbell, Desiree 15:45 10/14/2020 IV Fluids NS via IV site #1 Discontinued: bag #1 completed. Total amount infused: 980 mL. IV patency established. IV site checked: no pain, redness, or swelling. IV flushed thoroughly. --16:45 10/14/20 Campbell, Desiree 15:45 10/14/2020 Reglan IVP Response: pain is improving. Symptoms have improved the patient feels better. --16:45 10/14/20 Campbell, Desiree 16:49 10/14/20. ( pt updated she is having twins. pt worried she will not be able to olive picker her medications tonight. [facility] pharmacy will be closed. pharmacy will be changed to [facility] in [place]. Valdemar ribera.). --16:59 10/14/20 Campbell, Desiree 16:57 10/14/20. BP: 114/67. MAP: 82. HR: 72. RR: 16. --16:59 10/14/20 Desiree Campbell.DISPOSITION / DISCHARGE 16:50 10/14/2020 Site #1 removed upon discharge. Manual pressure, bandaid and bandage applied. --17:00 10/14/20 Campbell, Desiree 16:56 10/14/20. Condition at departure: stable. Discharge instructions provided and reviewed with the patient. Patient verbalized understanding. Written instructions provided. Written instructions not provided in Comoran. The patient was discharged by the physician chemist assistant. She was discharged home. She left ambulatory and via private vehicle. --17:01 10/14/20 Campbell, Desiree 17:02 10/14/20. O2 saturation: 98%. --17:03 10/14/20 Campbell, Desiree 17:03 10/14/20. Pain level now 0/10. --17:03 10/14/20 Desiree Campbell Departure time: 16:58 10/14/2020. --17:04 10/14/20 Desiree Campbell. 4 Clinical Report - Nurses [facility] Emergency Department [address] [place] [address] Phone #: ext- [phone] 10/14/2020 13:24 Patient: RICKY ZAVALA Sex: F : 1995 Age: 25yLocked/Released at 10/14/2020 17:07 by Desiree Campbell Name Value Range Interpretation Code Description Data Odette rce(s) Supporting Document(s) ID Date Data Source [id number] 10/14/2020 01:41:00 PM EST [facility] 1 Clinical Report - Physicians/Mid Levels [facility] Emergency Department [address] [place] [address] Phone #: ext- [phone] 10/14/2020 13:24 Patient: RICKY ZAVALA Sex: F : 1995 Age: 25y Time Seen: 13:35 10/14/2020. Arrived- By private vehicle. Historian- patient. Disposition decision: 16:33 10/14/2020.HISTORY OF PRESENT ILLNESS Chief Complaint: nausea, vomiting, diarrhea, 10 weeks gestation. Last normal menstrual period- Jul 27. This started several days ago. No pelvic pain, vaginal bleeding or discharge or complaint of leakage of fluid. (Pt states she 0 weeks gestation, has had NVD for several days, upper abdominal pain when she vomits, none currently, no vaginal bleeding or discharge, followed by OB [facility], has appt tomorrow there. No fever.). Similar symptoms previously. None. Recent medical care: Not recently seen/assessed.REVIEW OF SYSTEMSThe patient has had nausea. She has had vomiting. The vomiting has occurred numerous times. Nobilious emesis, feculent emesis, blood-tinged emesis, coffee-grounds emesis or frankly bloody emesis. Nounusually dark emesis. She has had diarrhea. No black stools, bloody stools, headache, double visionor fainting episodes. No fever, eye discomfort, eye discharge, sore throat or cough. No difficultybreathing, chest pain, skin rash, enlarged lymph nodes or chills. No joint pain.PAST HISTORYSee nurses notes. G 1; P 0; Ab 0. Problems: . Pelvic Fracture. Additional Surgeries: Tonsillectomy. Medications: Vitamins Oral. Allergies: Latex. No Known Drug Allergy.SOCIAL HISTORY 2 Clinical Report - Physicians/Mid Levels [facility] Emergency Department [address] [place] [address] Phone #: ext- [phone] 10/14/2020 13:24 Patient: RICKY ZAVALA Sex: F : 1995 Age: 25y Never smoker. No alcohol use or drug use. No recent travel.ADDITIONAL NOTESThe nursing notes have been reviewed with agreement regarding the chief complaint, HPI, ROS, PMH andpatient medications and allergies.PHYSICAL EXAMVital Signs: 10/14/2020 13:31 BP: 128/80. MAP: 96. HR: 64. RR: 18. O2 saturation: 100%. Temp: 98.2 F.Pain level now: 0/10. Have been reviewed as normal and appear to be correct. Blood pressure normal.Mean arterial pressure- normal. Heart rate normal. Respiratory rate normal. Temperature normal.Oxygen saturation normal.Appearance: Alert. Oriented X3. No acute distress.HEENT: Normal external inspection.ENT: Pharynx normal.Neck: Neck supple.CVS: Heart sounds normal.Respiratory: No respiratory distress. Painless inspiration. Breath sounds normal. Chest nontender.Abdomen: Soft and nontender. Bowel sounds normal. No organomegaly. No mass.Back: Normal external inspection.Skin: Skin warm and dry. Normal skin color. No rash. Normal skin turgor.Extremities: Extremities nontender. No pathologic edema.Neuro: Oriented X 3. Mood/affect normal. No motor deficit. No sensory deficit. Reflexes normal.LABS, X-RAYS, AND EKGPelvic Sonogram: OB US- viable diamniotic twin with EGAs of 6wk0d, no bleed. Study type:obstetrical evaluation. The study was independently viewed by me and interpreted by the radiologist a ndcontemporaneously by me. Interpretation time: 16:35 10/14/2020.Laboratory Tests: Laboratory tests have been ordered, with results reviewed and considered in themedical decision making process. Influenza Nasal A B: (SHARDA: 10/14/2020 15:55) ( MsgRcvd 10/14/2020 16:01) Canceled US OB 1ST TRI UP TO 14 WKS ADD'L FETUS: (SHARDA: 10/14/2020 15:02) ( MsgRcvd 10/14/2020 15:02) In Progress US OB 1st TRI UP TO 14 WEEKS/ ADD'L FETUS REASON FOR OBS: NV abd pain TRANSPORTATION: W IV? Y O2? N STATUS: PREG: YES ISOLATION N Beta-HCG, Quant Serum: (SHARDA: 10/14/2020 14:15) ( MsgRcvd 10/14/2020 15:09) Final results Test Result Flag Units (Reference) HCG QUANT 68266.0 mIU/mL Interpretation: Less than 5 mU/mL: Negative 6-10 mU/mL: Borderline (suggest repeat in 48 hours) >10: Positive Approx HCG range (mU/mL) Weeks post LMP 5.4-708 mU/mL 3-4 Weeks 217-06008 mU/mL 5-6 Weeks 4059-503201 mU/mL 7-8 Weeks 11641-464572 mU/mL 9-10 Weeks 38653-63808 mU/mL 12-14 Weeks 3 Clinical Report - Physicians/Mid Levels [facility] Emergency Department [address] [place] [address] Phone #: ext- [phone] 10/14/2020 13:24 Patient: RICKY ZAVALA Sex: F : 1995 Age: [id number] mU/mL 15-16 Weeks 8240-93535 mU/mL 17-18 WeeksCBC w Diff: (SHARDA: 10/14/2020 14:15) ( MsgRcvd 10/14/2020 14:29) Final results Test Result Flag Units (Reference) CBC W/AUTOMATED DI FF COMPLETE BLOOD COUNT WBC 9.1 10/uL (4.2 - 11.0) RBC 4.43 10/uL (4.20 - 5.40) HEMOGLOBIN 14.0 g/dL (12.0 - 16.0) HEMATOCRIT 39.5 % (37.0 - 47.0) MCV 89.2 fL (81.0 - 101) MCH 31.6 pg (27.0 - 34.0) MCHC 35.4 g/dL (31.0 - 36.0) RDW 11.9 % (11.5 - 14.5) PLATELETS 231 10/uL (150 - 450) MPV 10.0 fL (7.4 - 10.4) NEUT 74.8 % (37.0 - 80.0) LYMPH 18.3 L % (25.0 - 40.0) MONO 5.9 % (3.0 - 8.0) EOS 0.5 % (0.0 - 7.0) BASO 0.3 % (0.0 - 2.5) %IG 0.2 H % (0.0 - 0.0) %NRBC 0.0 % (0.0 - 0.0) #NEUT 6.81 10/uL (2.00 - 6.90) #LYMPH 1.67 10/uL (0.60 - 3.40) #MONO 0.54 10/uL (0.00 - 0.90) #EOS 0.05 10/uL (0.00 - 0.70) #BASO 0.03 10/uL (0.00 - 0.20) #IG 0.02 10/uL (0.00 - 0.10) #NRBC 0.00 10/uL (0.00 - 0.00) MANUAL DIFF NOT INDICATED RBC MORPH NOT INDICATEDCMP: (SHARDA: 10/14/2020 14:15) ( MsgRcvd 10/14/2020 15:11) Final results Test Result Flag Units (Reference) COMPREHENSIVE METABOLIC PANEL COMPREHENSIVE METABOLIC PANEL SODIUM 139 mEq/L (134 - 153) POTASSIUM 3.8 mEq/L (3.6 - 5.0) CHLORIDE 104 mEq/L (98 - 107) CO2 25 MEQ/L (22 - 30) GLUCOSE 84 MG/DL (65 - 110) BUN 7 MG/DL (7 - 21) CREATININE 0.7 MG/DL (0.7 - 1.5) BUN/CREAT 10 (8 - 27) TOTAL PROTEIN 7.0 G/DL (6.3 - 8.2) ALBUMIN 4.6 G/DL (3.9 - 5.0) GLOBULIN 2.4 GM/DL (2.4 - 3.2) A/G RATIO 1.9 (0.8 - 2.0) CALCIUM 9.5 MG/DL (8.4 - 10.2) TOTAL BILI <0.7 MG/DL (0.2 - 1.3) ALKALINE PHOS 50 U/L (38 - 126) SGOT/AST 18 U/L (5 - 40) SGPT/ALT 17 U/L (7 - 56) ANION GAP 10.0 mmol/L (8.0 - 16.0) AGE 25 yrs NON-AA GFR >60 mL/min 4 Clinical Report - Physicians/Mid Levels [facility] Emergency Department [address] [place] [address] Phone #: ext- [phone] 10/14/2020 13:24 Patient: RICKY ZAVALA Sex: F : 1995 Age: 25y AFR AMER GFR >60 mL/min Male GFR Interprentation 20-49 yrs >60 mL/min Normal 50-59 yrs >56 mL/min Normal 60-69 yrs >49 mL/min Normal 70-79yrs >42 mL/min Normal 80 and above >35 mL/min Normal Female GFR Interpretation 20-39 yrs >60 mL/min Normal 40-49 yrs >58 mL/min Normal 50-59 yrs >51 mL/min Normal 60-69 yrs >45 mL/min Normal 70-79 yrs >39 mL/min Normal 80 and above >32 mL/min Normal Lactic Acid: (SHARDA: 10/14/2020 14:15) ( MsgRcvd 10/14/2020 14:42) Final results Test Result Flag Units (Reference) LACTIC ACID 1.2 MMOL/L (0.2 - 2.2) Lipase: (SHARDA: 10/14/2020 14:15) ( [facility] 10/14/2020 15:11) Final results Test Result Flag Units (Reference) LIPASE 25 U/L (13 - 60) Urinalysis: (SHARDA: 10/14/2020 15:20) ( [facility]05[facility] Final results Test Result Flag Units (Reference) URINALYSIS URINALYSIS SOURCE R COLOR Yellow (NORMAL: Yello CLARITY Clear (NORMAL: Clear SPEC GRAVITY 1.010 (1.001 - 1.030 pH 6 (5 - 9) GLUCOSE Negative (NORMAL: Negat BILIRUBIN Negative (NORMAL: Negat KETONE 50 A (NORMAL: Negat PROTEIN Negative (NORMAL: Negat NITRITE Negative (NORMAL: Negat BLOOD Negative (NORMAL: Negat LEUK EST 25 (NORMAL: Negat UROBILINOGEN NOR (less than 1.0 MICROSCOPIC See Below WBC 1 - 3 (NORMAL: NONE EPITHELIAL MODERATE A (NORMAL: NONE BACTERIA Trace (NORMAL: NONE Type Rh: (SHARDA: 10/14/2020 14:15) ( [facility] 10/14/2020 15:52) Final results Test Result Flag Units (Reference) ABO GROUP B RH TYPE POSITIVE { ABO/RH REENTER B POSITIVE OB 1ST TRI UP TO 14 WEEKS: (SHARDA: 10/14/2020 13:51) ( [facility] 10/14/2020 15:02) In Progress US OB 1ST TRI UP TO 14 WEEKS Reason(s): NV abd pain 10 weks gestation TRANSPORTATION: WC IV? IV?(Yes) O2? Oxygen?(No) Ro. 5 Clinical Report - Physicians/Mid Levels [facility] Emergency Department [address] [place] [address] Phone #: ext- [phone] 10/14/2020 13:24 Patient: RICKY ZAVALA Sex: F : 1995 Age: 25yPROGRESS AND PROCEDURESCourse of Care: 15:16 Oct 14 2020. awaiting UA results. Disposition: Discharged home in good and improved condition. Discharge decision based on the following: patient's condition is improved; patient is ambulatory; patient is active; patient's exam is improved; improving condition on repeat evaluation; social support is adequate; transportation is available; follow-up is available; clinical impression is consistent with outpatient treatment.CLINICAL IMPRESSION First trimester ; positive test in emergency department. Ultrasound demonstrated an intrauterine . First trimester discomforts of pregnan cy- nausea and vomiting. Positive test in the emergency department.INSTRUCTIONS No strenuous activity. Rest at home for one days. Do not work for one day. Drink plenty of fluids for the next 48 hours as needed. No sexual contact until symptoms resolve. Do not smoke. No alcohol. Warnings: Further evaluation is necessary. GENERAL WARNINGS: Return or contact your physician immediately if your condition worsens or changes unexpectedly, if not improving as expected, or if other problems arise. Specifically return if pain, vomiting, bleeding, breathing difficulty or fever. Your Current Medications: Your current home medications have been reviewed. CONTINUE TAKING THE FOLLOWING MEDICATIONS: Vitamins Oral. Prescription Medications: Reglan 10 mg tablet Take 1 tablet every eight hours as needed for 2 days -- for nausea/vomiting. Dispense 6 tablet. Refills: 0. Substitution permitted. Pharmacy - [facility] [id number] [place] [address] ; [place] [address]. . Reglan 10 mg tablet Take 1 tablet every eight hours as needed for 2 days -- for nausea. Dispense 6 tablet. Refills: 0. Substitution permitted. Pharmacy - [id number], [place] [phone]. . 6 Clinical Report - Physicians/Mid Levels [facility] Emergency Department [address] [place] [address] Phone #: ext- [phone] 10/14/2020 13:24 Patient: RICKY ZAVALA Sex: F : 1995 Age: 25y Follow-up: Follow up with your healthcare provider in one day as scheduled even if well. Reason for referral: f/u with OB in [place] as scheduled tomorrow. Summary of care provided to patient via paper. Understanding of the discharge instructions verbalized by patient. Expected course of illness, discharge instructions, activity level, prescriptions x1, follow-up appointment and risks and benefits of treatment reviewed with patient and understanding verbalized. Agrees to plan of care.(Electronically signed by ANDREW Mccoy 10/14/2020 18:55) Name Value Range Interpretation Code Description Data Odette rce(s) Supporting Document(s) ID Date Data Source [id number] 10/19/2020 06:12:00 AM [facility] Name Value Range Interpretation Code Description Data Odette rce(s) Supporting Document(s) CULTURE URINE [facility] _CULTURE URINE_$$[id number]$$[id number]$$[id number]$$[id number]$$258689$$[id number]$$038509$$344068$$[id number]$$ 488259$$907850$$460414$$227507$$671507$$755917$$185973$$058366$$430000$$991093$$ 759213$$686115$$500776$$967375$$268272$$418751$$374204$$068208 -- Continued on next page --Patient: LUCAS GARCÍA Order: [id number] Page 2Culture: CULTURE URINE Status: Final ==== -- Continued on next page --Patient: LUCAS GARCÍA Order: [id number] Page 2Culture: CULTURE URINE Status: Prelim =====$$[id number]$$[id number] DATE/TIME: 10/18/2020 16:06Culture: CULTURE URINE Status: FinalIsolate 1 Enterococcus faecalis Flag: A . . . . . . .710,000-25,000 colony forming units per mL Previous result entered on 10/17/2020 03:12 ET Microbiological testing to rule out the presence of possible pathogensis in progress.Urine Culture,Comprehensive: L1Ckkuyalhpiub faecalis Flag: APatient: LUCAS GARCÍA Order: [id number] Page 3Culture: CULTURE URINE Status: Final ISOLATE 1 Enterococcus faecalis Isolate 1Antibiotic SIDRA IntUnits ug/mL Ciprofloxacin S S . . . . . .185-9Levofloxacin S S . . . . . .70262- 8Nitrofurantoin S S . . . . . .363-2Penicillin S S . . . . . .6932-8Tetracycline S S . . . . . .496-0Vancomycin S S . . . . . .524-9P1 Test performed by: [facility] VIOLET #: [id number] [address] [place] [address] [id number] [facility] [id number] Director : Silvestre Dsouza MD NPI #:Adjustment Supervisor : 10/18/20.XMT.SENT REF 10/19/20.XMT.SENT REF ID Date Data Source [id number] 10/14/2020 04:05:00 PM EST [facility] Name Value Range Interpretation Code Description Data Odette rce(s) Supporting Document(s) URINALYSIS [facility] URINALYSIS SOURCE R [facility] al COLOR Yellow NORMAL: Yellow [facility] CLARITY Clear NORMAL: Clear [facility] Specific gravity of Urine by Test strip 1.010 1.001 - 1.030 [facility] pH 6 5 - 9 [facility] al Glucose [Mass/volume] in Urine by Test strip Negative NORMAL: Negat [facility] Bilirubin.total [Presence] in Urine by Test strip Negative NORMAL: Negative [facility] Ketones [Presence] in Urine by Test strip 50 NORMAL: Negative [facility] Protein [Mass/volume] in Urine by Test strip Negative [facility] Nitrite [Presence] in Urine by Test strip Negative NORMAL: Negative [facility] BLOOD Negative NORMAL: Negative [facility] Leukocyte esterase [Presence] in Urine by Test strip 25 ANUJ L: Negative [facility] Urobilinogen [Mass/volume] in Urine by Test strip NOR less nery n 1.0 mg/dL [facility] MICROSCOPIC See Below [facility] ital WBC 1 - 3 NORMAL: NONE SEEN [facility] EPITHELIAL MODERATE NORMAL: NONE SEEN A [facility] Bacteria [Presence] in Urine sediment by Light microscopy [facility] [place] NORMAL: NONE SEEN [facility] ID Date Data Source [id number] 10/14/2020 03:51:00 PM EST [facility] Name Value Range Interpretation Code Description Data Odette rce(s) Supporting Document(s) ABO group [Type] in Blood B [facility] Rh [Type] in Blood POSITIVE [facility] { ABO/RH REENTER B POSITIVE ID Date Data Source [id number] 10/14/2020 03:11:00 PM [facility] Name Value Range Interpretation Code Description Data Odette rce(s) Supporting Document(s) Lipase [Enzymatic activity/volume] in Serum or Plasma 25 U/L 13 - 60 [facility] ID Date Data Source [id number] 10/14/2020 03:11:00 PM EST [facility] Name Value Range Interpretation Code Description Data [facility](s) Supporting Document(s) COMPREHENSIVE METABOLIC PANEL [facility] COMPREHENSIVE METABOLIC PANEL Sodium [Moles/volume] in Serum or Plasma 139 mEq/L 134 - 153 [facility] Potassium [Moles/volume] in Serum or Plasma 3.8 mEq/L 3.6 - 5.0 [facility] Chloride [Moles/volume] in Serum or Plasma 104 mEq/L 98 - 107 [facility] Carbon dioxide, total [Moles/volume] in Serum or Plasma 25 MEQ/L 22 - 30 [facility] Glucose [Mass/volume] in Serum or Plasma 84 MG/DL 65 - 110 [facility] BUN 7 MG/DL 7 - 21 [facility] al Creatinine [Mass/volume] in Serum or Plasma 0.7 MG/DL 0.7 - 1.5 [facility] BUN/CREAT 10 8 - 27 [facility] Protein [Mass/volume] in Serum or Plasma 7.0 G/DL 6.3 - 8.2 [facility] Albumin [Mass/volume] in Serum or Plasma 4.6 G/DL 3.9 - 5.0 [facility] Globulin [Mass/volume] in Serum by calculation 2.4 GM/DL 2.4 - 3.2 [facility] A/G RATIO 1.9 0.8 - 2.0 [facility] Calcium [Mass/volume] in Serum or Plasma 9.5 MG/DL 8.4 - 10.2 [facility] Bilirubin.total [Mass/volume] in Serum or Plasma <0.7 MG/DL 0.2 - 1.3 [facility] Alkaline phosphatase [Enzymatic activity/volume] in Serum or Plasma 50 U/L 38 - 126 [facility] Aspartate aminotransferase [Enzymatic activity/volume] in Serum or Plasma 18 U/L 5 - 40 [facility] Alanine aminotransferase [Enzymatic activity/volume] in Seru m or Plasma 17 U/L 7 - 56 [facility] Anion gap 3 in Serum or Plasma 10.0 mmol/L 8.0 - 16.0 [facility] AGE 25 yrs [facility] NON-AA GFR >60 mL/min [facility] ital AFR AMER GFR >60 mL/min [facility] Male GFR In terprentation 20-49 yrs >60 mL/min Normal 50-59 yrs >56 mL/min Normal 60-69 yrs >49 mL/min Normal 70-79yrs >42 mL/min Normal 80 and above >35 mL/min Normal Female GFR Interpretation 20-39 yrs >60 mL/min Normal 40-49 yrs >58 mL/min Normal 50-59 yrs >51 mL/min Normal 60-69 yrs >45 mL/min Normal 70-79 yrs >39 mL/min Normal 80 and above >32 mL/min Normal ID Date Data Source [id number] 10/14/2020 03:09:00 PM EST [facility] Name Value Range Interpretation Code Description Data Odette rce(s) Supporting Document(s) Choriogonadotropin.intact [Units/volume] in Serum or Plasma 27358.0 mIU/mL [facility] Interpr etation: Less than 5 mU/mL: Negative 6-10 mU/mL: Borderline (suggest repeat in 48 hours) >10: Positive Approx HCG range (mU/mL) Weeks post LMP 5.4-708 mU/mL 3-4 Weeks 217-00969 mU/mL 5-6 Weeks 4059-342020 mU/mL 7-8 Weeks 29841-453125 mU/mL 9-10 Weeks 89691-60652 mU/mL 12-14 Weeks 27552-95095 mU/mL 15-16 Weeks 8240- 56988 mU/mL 17-18 Weeks ID Date Data Source [id number] 10/14/2020 02:42:00 PM EST [facility] Name Value Range Interpretation Code Description Data Odette rce(s) Supporting Document(s) Lactate [Moles/volume] in Serum or Plasma 1.2 MMOL/L 0.2 - 2.2 [facility] ID Date Data Source [id number] 10/14/2020 02:29:00 PM EST [facility] Name Value Range Interpretation Code Description Data Odette rce(s) Supporting Document(s) CBC W/AUTOMATED DIFF [facility] COMPLETE BLOOD COUNT Leukocytes [#/volume] in Blood by Automated count 9.1 10^3/uL 4.2 - 1 1.0 [facility] [facility] Eryth[facility] [#/volume] in Blood by Automated count 4.43 10^6/uL 4. 20 - 5.40 [facility] Hemoglobin [Mass/volume] in Blood 14.0 g/dL 12.0 - 16.0 [facility] Hematocrit [Volume Fraction] of Blood by Automated count 39.5 % 3 7.0 - 47.0 [facility] Erythrocyte mean corpuscular volume [Entitic volume] by Auto mated count 89.2 fL 81.0 - 101 [facility] Erythrocyte mean corpuscular hemoglobin [Entitic mass] by Automated count 31.6 pg 27.0 - 34.0 [facility] Erythrocyte mean corpuscular hemoglobin concentration [Mass/volume] by Automated count 35.4 g/dL 31.0 - 36.0 [facility] Erythrocyte distribution width [Ratio] by Automated count 11.9 % 11.5 - 14.5 [facility] Platelets [#/volume] in Blood by Automated count 231 10^3/uL 150 - 45 0 [facility] Platelet mean volume [Entitic volume] in Blood by Automated count 10.0 fL 7.4 - 10.4 [facility] Neutrophils/100 leukocytes in Blood by Automated count 74.8 % 37. 0 - 80.0 [facility] Lymphocytes/100 leukocytes in Blood by Manual count 18.3 % 25.0 - 40.0 L [facility] Monocytes/100 leukocytes in Blood by Automated count 5.9 % 3.0 - 8.0 [facility] Eosinophils/100 leukocytes in Blood by Automated count 0.5 % 0.0 - 7.0 [facility] Basophils/100 leukocytes in Blood by Automated count 0.3 % 0.0 - 2.5 [facility] %IG 0.2 % 0.0 - 0.0 H [facility] %NRBC 0.0 % 0.0 [facility] 0.[facility] [#/volume] in Blood by Automated count 6.81 10^3/uL 2.00 - 6.90 [facility] Lymphocytes [#/volume] in Blood by Automated count 1.67 10^3/uL 0.60 - 3.40 [facility] Monocytes [#/volume] in Blood by Automated count 0.54 10^3/uL 0.00 - 0.90 [facility] Eosinophils [#/volume] in Blood by Automated count 0.05 10^3/uL 0.00 - 0.70 [facility] Basophils [#/volume] in Blood by Automated count 0.03 10^3/uL 0.00 - 0.20 [facility] #IG 0.02 10^3/uL 0.00 - 0.10 [facility] #NRBC 0.00 10^3/uL 0.00 - 0.00 [facility] MANUAL DIFF NOT INDICATED [facility] RBC MORPH NOT INDICATED [facility] Procedure Vital Signs ID Date Data Source UNK Name Value Range Interpretation Code Description Data Source(s) Body surface area Derived from formula 1.76 m2 1.76 m2 [facility] ([facility]) Body weight 65.[address] [facility] ([place], [place])) [place] body weight 135 [lb_av] 135 [lb_av] [facility] Body mass index (BMI) [Ratio] 22.7 kg/m2 22.7 k g/m2 [facility] ([facility]) Body weight 145.00 [lb_av] 145.00 [lb_av] [facility] Body height 67 [in_i] 67 [in_i] [facility] ([facility]) 5'7"
--- OUTSIDE RECORDS SUMMARY | 2020-11-19 14:01 | CCD | Continuity of Care Document ---
Author Author Samara CHAPA MD Organization Unknown Address [address] [place] [id number] Phone [phone] Care Team Providers Care Structured Cabling Technician Name Role Phone Lacey Wilson AUTM Problems Description No Information Available Social History Type Date Description Comments Sex Unknown ETOH Use Denies alcohol use Tobacco Use Start: Unknown Non Smoker Recreational Drug Use Denies Drug Use Allergies, Adverse Reactions, Alerts Active Allergies Reaction Severity Comments Date Latex 11/08/2020 Medications Active Medications SIG Qnty Indications Ordering Provide r Date Zofran 8mg Tablets 1 tab by mouth every 8 hours as needed for nausea Unknown 00/00 /0000 Immunizations Description No Information Available Vital Signs Date Vital Result Comment 11/08/2020 10:26am Height 67 inches 5'7" Weight 145.00 lb BMI (Body Mass Index) 22.7 kg/m2 [place] [facility] Weight 135 lb Weight 65.772 kg BSA (Body Surface Area) 1.76 m2 Results Description No Information Available Procedures Description No Information Available Medical Devices Description No Information Available Encounters Description No Information Available Assessments Description No Information Available Plan of Treatment No Information Available Functional Status Description No Information Available Mental Status Description No Information Available Referrals Refer to Reason for Referral Status Appt Date Trenton Chapa M.D. OTHER PERIPHERAL VERTIGO RT EAR OFFICE OUTPATIENT NEW OR ESTAB PT (1) 10/30/2020-04/28/2021 OFFICE/OUTPATIENT ESTAB MINIMAL [place] (3) 10/30/2020-10/30/2021 Scheduled 11/08/[address] [place] [id number] [phone]
[2020-11-19] MEDS ORDERED: ZOFR4TAB16 PO (14:05)
[2020-11-19] MEDS ORDERED: NS 1,000 ML IV ONE ×2 (14:45→17:15)
[2020-11-19] MEDS ORDERED: ONDANSETRON 4MG/2ML VIAL IV ONE (14:45)
[2020-11-19 15:07] LABS: BASO % 0.2 % (0.0-1.0); EOS % 0.1 % (0.0-3.0); HEMATOCRIT 43.5 % (36.0-47.0); HEMOGLOBIN 14.9 g/dl (12.0-15.5); LYMPH # 1.2 10^3/uL (1.5-5.0); LYMPH % 14.3 % (24.0-44.0); MEAN CORPUSCULAR HEMOGLOBIN 30.6 pg (27.0-33.0); MEAN CORPUSCULAR HGB CONC 34.3 g/dl (32.0-36.5); MEAN CORPUSCULAR VOLUME 89.3 fl (80.0-96.0); MONO # 0.3 10^3/uL (0.0-0.8); MONO % 3.9 % (2.0-8.0); NEUTROPHILS # 6.9 10^3/uL (1.5-8.5); NEUTROPHILS % 81.3 % (36.0-66.0); PLATELET COUNT, AUTOMATED 247 10^3/uL (150-450); RED BLOOD COUNT 4.87 10^6/uL (4.00-5.40); WHITE BLOOD COUNT 8.5 10^3/uL (4.0-10.0)
--- OUTSIDE RECORDS SUMMARY | 2020-11-19 15:14 | CCD ---
Author Author [facility] Organization [facility] Address Unknown Phone Unavailable Care Team Providers Care Analytical Lab Analyst Name Role Phone RAMONSoham BAH Unavailable Unavailable UNKNOWN, CLINIC JUN Unavailable Unavailable Re-disclosure Warning The records that [...] is protected by Article 27-F of the [place] State Public Health law. If you continue you may have access to information: Regarding HIV / AIDS; Provided by facilities licensed or operated by the [facility] Office of Mental Health; or Provided by the [facility] Office for People With Developmental Disabilities. If such information is present, then the following [facility] mandated warning applies: This information has been [...] law may result in a fine or senior care sentence or both. A general authorization for the release of medical or other information is NOT sufficient authorization for further disc losure. Encounters Encounter Providers Location Date Indications Data Source(s ) Emergency Attender: FRANCIA NAVARROJONOCOConsultant: JUN UNKNOWN 10/14/2020 01:41:00 PM EST - 10/14/2020 04:58:00 PM [facility] Patient discharged. Medications Medication Brand Name Start Date Product Form Dose Route Admi nistrative Instructions Pharmacy Instructions Status Indications Reaction Description Data Source(s) 5 mg 10/14/2020 12:00:00 AM EST tablet 6 TAKE ONE TABLET BY MOUTH EVERY EIGHT HOURS NEEDED FOR NAUSEA TAKE ONE TABLET BY MOUTH EVERY EIGHT MADAN RS NEEDED FOR NAUSEA SOLD: 10/14/2020 [facility] Insurance Providers Payer name Policy type / Coverage type Policy ID Covered democrat ID Covered democrat's relationship to oden Policy Oden Plan Information [employer] [id number] SP [id number] [employer] O [id number] S [id number] [employer] [facility] - O/P [id number] 18 [id number] Problems, Conditions, and Diagnoses Code Display Name Description Problem Type Effective Dates Data Source(s) 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 Latex allergy status Diagnosis 10/14/2020 01:41:00 PM [facility] Z3A10 10 weeks gestation of 10 weeks gestation of Diagnosis 10/14/2020 01:41:00 PM [facility] O219 Vomiting of , unspecified Vomiting of p regnancy, unspecified Diagnosis 10/14/2020 01:41:00 PM [facility] Results ID Date Data Source [id number] 10/30/2020 03:36:00 PM EST [facility] Name Value Range Interpretation Code Description Data Odette rce(s) Supporting Document(s) SARS coronavirus 2 RNA [Presence] in Res piratory specimen by NANCY with probe detection NEGATIVE [facility] This lab was ordered by [facility] a nd reported by [facility]. ID Date Data Source [id number] 10/19/2020 08:45:00 AM EST [facility] [address] [place] [address] PHONE: [phone] FAX: [phone] Name .................. : LUCAS GARCÍA Acct Number.................. : [id number] ROOM. ................. : [facility] Number ................... : [id number] Stay type ............. : E/R Discharge Date......... ... : 10/14/20 Admit Date ......... : 10/14/20 Admit Phys .................... : LATASHA Date of ....... : 1995 Family Phys ................... : UNKNOWN Phone .................. : [phone] Age ................................ : 25 Film# .................. .:[id number] Sex ................................. : F Unsigned transcriptions are preliminary reports and do not represent a medical or legal document US OB 1ST TRI UP TO 14 WEEKS 59041 COMPLETE:10/14/20 15:02 KNB 1670 Reason(s): NV abd pain 10 weks gestation US OB 1ST TRI UP TO 14 WKS [place] [address] COMPLETE:10/14/20 15:02 KNB 1678 (REASON FOR OBS: [...] rce(s) Supporting Document(s) ID Date Data Source [id number] 10/19/2020 08:45:00 AM EST [facility] [address] [place] [address] PHONE: [phone] FAX: [phone] Name .................. : LUCAS GARCÍA Acct Number.................. : [id number] ROOM. ................. : TR-08 MR Number ................... : [id number] Stay type ............. : E/R Discharge Date......... ... : 10/14/20 Admit Date ......... : 10/14/20 Admit Phys .................... : RAMONNIURKA Date of ....... : 1995 Family Phys ................... : UNKNOWN Phone .................. : [phone] Age ................................ : 25 Film# .................. .:[id number] Sex ................................. : F Unsigned transcriptions are preliminary reports and do not represent a medical or legal document US OB 1ST TRI UP TO 14 WEEKS 15052 COMPLETE:10/14/20 15:02 KNB 1673 Reason(s): NV abd pain 10 weks gestation US OB 1ST TRI UP TO 14 WKS [place] [address] COMPLETE:10/14/20 15:02 KNB 1678 (REASON FOR OBS: [...] rce(s) Supporting Document(s) ID Date Data Source [id number] 10/17/2020 02:50:00 PM EST [facility] Name Value Range Interpretation Code Description Data Odette rce(s) Supporting Document(s) SARS coronavirus 2 RNA [Presence] in Res piratory specimen by NANCY with probe detection NEGATIVE [facility] This lab was ordered by [facility] a nd reported by [facility]. ID Date Data Source [id number] 10/14/2020 01:41:00 PM EST [facility] 1 OrderSheet [facility] Emergency Department [address] [place] [address] Phone #: lry- [phone] 10/14/2020 13:24 Patient: RICKY ZAVALA Sex: F [...] MORALES; WandaUrinalysis (Clean STAT 13:51 10/14/2020 15:21 PeterCatgregorio) Valdemar MORALES; Ramón BEACHType Rh STAT 13:51 [...] Description Priority Entered Acknowledged Initialed 2 OrderSheet [facility] Emergency Department [address] [place] [address] Phone #: ext- [phone] 10/14/2020 13:24 Patient: [...] by Desiree Campbell (17:07 10/14/2020)][Electronically signed by Valdemar Islas (18:55 10/14/2020)][Electronically locked by Desiree Campbell (17:07 10/14/2020)] Name Value Range Interpretation Code Description Data Odette rce(s) Supporting Document(s) ID Date Data Source [id number] 10/14/2020 01:41:00 PM EST [facility] 1 Medication Reconciliation Report [facility] Emergency Department [address] [place] [address] Phone #: [phone]- [phone] 10/14/2020 13:24 Patient: RICKY ZAVALA Sex: F [...] 6 tablet. Refills: 0. Substitution permitted.Pharmacy - [facility] [address] ; [place] [address]. .Reglan 10 mg tablet Take 1 tablet every eight hours as needed for 2 days -- for nausea. Dispense 6tablet. Refills: 0. Substitution permitted.Pharmacy - [facility] [address] ; [place], [place] [id number]. . -- ANDREW Mccoy Name Value Range Interpretation Code Description Data Odette rce(s) Supporting Document(s) ID Date Data Source [id number] 10/14/2020 01:41:00 PM [place] [address] Medication Administration Record [facility] Emergency Department [address] [place] [address] Phone #: mkh- [phone] 10/14/2020 13:24 Patient: RICKY ZAVALA Sex: F : 1995 Age: 25yWeight: 71.4 kgHeight/Length: 67 inBMI: 24.7ALLERGIES: Latex, No Known Drug Allergy Date/Time Medication Administered Medication OrderedGiven REGLAN [IVP] (METOCLOPRAMIDE Reglan IVP 10 mg14:23 10/14/2020 HCL)Desiree Campbell, Dose: 10 mg IVP Site: #1 right forearmStart NS [IV] NS IV : Bolus 1000 mL, then 70774:19 10/14/2020 Dose: IV Fluids mL/hr (NOW x1)Desiree Campbell, Rate: 980 mL/hr over 1 hour(s)---- Dispensed: 1000 mL bagStop Site: #1 right :45 10/14/2020Desiree leung, Name Value Range Interpretation Code Description Data Odette rce(s) Supporting Document(s) ID Date Data Source [id number] 10/14/2020 01:41:00 PM [facility] 1 General Instructions [facility] Emergency Department [address] [place] [address] Phone #: ext- [phone] 10/14/2020 13:24 Patient: RICKY ZAVALA Sex: F [...] 6 tablet. Refills: 0. Substitution permitted.Pharmacy - [facility] [address] ; [place] [address]. .Reglan 10 mg tablet Take 1 tablet every eight hours as needed for 2 days -- for nausea. Dispense 6tablet. Refills: 0. Substitution permitted.Pharmacy - [facility] [address] [place], [place] [id number]. .Follow-up:Follow up with your healthcare provider in one day as scheduled even if well. Reason for referral: f/u withOB in [place] as scheduled tomorrow. Summary of care provided to patient via paper.Understanding of the discharge instructions verbalized by patient. Expected course of illness, dischargeinstructions, activity level, prescriptions x1, follow-up appointment and risks and benefits of treatmentreviewed with patient and understanding verbalized. Agrees to plan of care. 2 General Instructions [facility] Emergency Department [address] [place] [address] Phone #: ext- [phone] 10/14/2020 13:24 Patient: [...] Food cravings or turn-offs 3 General Instructions [facility] Emergency Department [address] [place] [address] Phone #: ext- [phone] 10/14/2020 13:24 Patient: [...] You can seeyour family provider, a specialist (floor finisher helper), a breakdown man, or a primary care clinic.When to seek medical advice 4 General Instructions [facility] Emergency Department [address] [place] [address] Phone #: ext- [phone] 10/14/2020 13:24 [id number] Sex: F : 1995 Age: 25yCall your healthcare provider right away if any of these occur: Vaginal bleeding Pain in your belly (abdomen) or back that is moderate or severe Lots of vomiting, or you can't keep any fluids down for 6 hours Burning feeling when you urinate Headache, dizziness, or rapid weight gain Fever Vision changes or blurred vision [phone] [employer] [address] [place] [address], [place] [address]. All rights reserved. This information is not [...] the most common symptoms: 5 General Instructions [facility] Emergency Department [address] [place] [address] Phone #: ext- [phone] 10/14/2020 13:24 Patient: [...] baby. Also avoid marijuana. 6 General Instructions [facility] Emergency Department [address] [place] [address] Phone #: ext- [phone] 10/14/2020 13:24 Patient: RICKY ZAVALA Sex: F [...] You can seeyour family provider, a specialist (floor finisher helper), a breakdown man, or a primary care clinic.When to seek medical adviceCall your healthcare provider right away if any of these occur: Vaginal bleeding Pain in your belly (abdomen) or back that is moderate or severe Lots of vomiting, or you can't keep any fluids down for 6 hours Burning feeling when you urinate Headache, dizziness, or rapid weight gain Fever Vision changes or blurred vision [phone] [employer] [address] [place] [address], [place] [address]. All rights reserved. This information is not [...] rce(s) Supporting Document(s) ID Date Data Source [id number] 10/14/2020 01:41:00 PM EST [facility] 1 Clinical Report - Nurses [facility] Emergency Department [address] [place] [address] Phone #: ext- [phone] 10/14/2020 13:24 Patient: RICKY ZAVALA Sex: F [...] Currently . 2 Clinical Report - Nurses [facility] Emergency Department [address] [place] [address] Phone #: ext- [phone] 10/14/2020 13:24 Patient: [...] Desiree Campbell 3 Clinical Report - Nurses [facility] Emergency Department [address] [place] [address] Phone #: ext- [phone] 10/14/2020 13:24 Patient: CIEMINSKI, RICKY Sex: F [...] Patient returned from sonogram by wheelchair with ct technologist. --15:00 10/14/20 Campbell, Desiree 15:45 10/14/2020 IV [...] worried she will not be able to pickle pumper her medications tonight. [facility] pharmacy will be closed. pharmacy will be changed to [facility] in [place]. Valdemar ribera.). --16:59 10/14/20 Campbell, Desiree 16:57 [...] instructions provided. Written instructions not provided in Haitian. The patient was discharged by the physician regional administrative assistant. She was discharged home. She left ambulatory and via private vehicle. --17:01 10/14/20 Campbell, Desiree 17:02 10/14/20. O2 saturation: 98%. --17:03 10/14/20 Campbell, Desiree 17:03 10/14/20. Pain level now 0/10. --17:03 10/14/20 Desiree Campbell Departure time: 16:58 10/14/2020. --17:04 10/14/20 Desiree Campbell. 4 Clinical Report - Nurses [facility] Emergency Department [address] [place] [address] Phone #: ext- [phone] 10/14/2020 13:24 Patient: RICKY ZAVALA Sex: F : 1995 Age: 25yLocked/Released at 10/14/2020 17:07 by Desiree Campbell Name Value Range Interpretation Code Description Data Odette rce(s) Supporting Document(s) ID Date Data Source [id number] 10/14/2020 01:41:00 PM EST [facility] 1 Clinical Report - Physicians/Mid Levels [facility] Emergency Department [address] [place] [address] Phone #: ext- [phone] 10/14/2020 13:24 Patient: [...] vaginal bleeding or discharge, followed by OB [facility], has appt tomorrow there. No fever.). Similar [...] HISTORY 2 Clinical Report - Physicians/Mid Levels [facility] Emergency Department [address] [place] [address] Phone #: ext- [phone] 10/14/2020 13:24 Patient: RICKY ZAVALA Sex: F [...] Test Result Flag Units (Reference) HCG QUANT 51773.0 mIU/mL Interpretation: Less than 5 mU/mL: Negative 6-10 mU/mL: Borderline (suggest repeat in 48 hours) >10: Positive Approx HCG range (mU/mL) Weeks post LMP 5.4-708 mU/mL 3-4 Weeks 217-10968 mU/mL 5-6 Weeks 4059-674558 mU/mL 7-8 Weeks 21909-476522 mU/mL 9-10 Weeks 88977-07239 mU/mL 12-14 Weeks 3 Clinical Report - Physicians/Mid Levels [facility] Emergency Department [address] [place] [address] Phone #: ext- [phone] 10/14/2020 13:24 Patient: RICKY ZAVALA Sex: F : 1995 Age: 57r58[address]-59855 mU/mL 15-16 Weeks 8240-31186 mU/mL 17-18 WeeksCBC w Diff: (SHARDA: 10/14/2020 [...] mL/min 4 Clinical Report - Physicians/Mid Levels [facility] Emergency Department [address] [place] [address] Phone #: ext- [phone] 10/14/2020 13:24 Patient: [...] - 2.2) Lipase: (SHARDA: 10/14/2020 14:15) ( [facility] 10/14/2020 15:11) Final results Test Result Flag Units (Reference) LIPASE 25 U/L (13 - 60) Urinalysis: (SHARDA: 10/14/2020 15:20) ( [facility] 10/14[facility] 16:05) Final results Test Result Flag [...] NONE Type Rh: (SHARDA: 10/14/2020 14:15) ( [facility] 10/14/2020 15:52) Final results Test Result Flag Units (Reference) ABO GROUP B RH TYPE POSITIVE { ABO/RH REENTER B POSITIVE OB 1ST TRI UP TO 14 WEEKS: (SHARDA: 10/14/2020 13:51) ( [facility] 10/14/2020 15:02) In Progress US OB 1ST TRI UP TO 14 WEEKS Reason(s): NV abd pain 10 weks gestation TRANSPORTATION: WC IV? IV?(Yes) O2? Oxygen?(No) Ro. 5 Clinical Report - Physicians/Mid Levels [facility] Emergency Department [address] [place] [address] Phone #: ext- [phone] 10/14/2020 13:24 Patient: RICKY ZAVALA Sex: F [...] tablet. Refills: 0. Substitution permitted. Pharmacy - [facility] [address] [place] [address] ; [place] [address]. . Reglan 10 mg tablet Take 1 tablet every eight hours as needed for 2 days -- for nausea. Dispense 6 tablet. Refills: 0. Substitution permitted. Pharmacy - [facility] [address] [place], [place] [id number]. . 6 Clinical Report - Physicians/Mid Levels [facility] Emergency Department [address] [place] [address] Phone #: ext- [phone] 10/14/2020 13:24 Patient: RICKY ZAVALA Sex: F : 1995 Age: 25y Follow-up: Follow up with your healthcare provider in one day as scheduled even if well. Reason for referral: f/u with OB in [place] as scheduled tomorrow. Summary of care provided [...] rce(s) Supporting Document(s) ID Date Data Source [id number] 10/19/2020 06:12:00 AM [facility] Name Value Range Interpretation Code Description Data Odette rce(s) Supporting Document(s) CULTURE URINE [facility] spital _CULTURE URINE_$$[id number]$$[id number]$$[id number]$$[id number]$$400584$$941024$$733501$$618852$$401060$$ 400081$$292155$$674369$$115777$$456255$$680326$$288419$$171216$$482264$$365395$$ 575846$$429569$$244126$$736934$$439587$$266085$$[id number]$$[id number] -- Continued on next page --Patient: LUCAS GARCÍA Order: [id number] Page 2Culture: CULTURE URINE Status: Final ==== -- Continued on next page --Patient: LUCAS GARCÍA Order: [id number] Page 2Culture: CULTURE URINE Status: Prelim =====$$[id number]$$[id number] DATE/TIME: 10/18/2020 16:06Culture: CULTURE URINE Status: FinalIsolate 1 Enterococcus faecalis Flag: A . . . . . . .710,000-25,000 colony forming units per mL Previous result entered on 10/17/2020 03:12 ET Microbiological testing to rule out the presence of possible pathogensis in progress.Urine Culture,Comprehensive: R6Twivmeafrzof faecalis Flag: APatient: LUCAS GARCÍA Order: [id number] Page 3Culture: CULTURE URINE Status: Final ISOLATE 1 Enterococcus faecalis Isolate 1Antibiotic SIDRA IntUnits ug/mL Ciprofloxacin S S . . . . . .185-9Levofloxacin S S . . . . . .89238- 8Nitrofurantoin S S . . . . . .363-2Penicillin S S . . . . . .6932-8Tetracycline S S . . . . . .496-0Vancomycin S S . . . . . .524-9P1 Test performed by: [facility] VIOLET #: [id number] [address] [place] [address] [id number] [facility] [id number] Director : Silvestre Dsouza MD NPI #:Video System Repairer : 10/18/20.XMT.SENT REF 10/19/20.XMT.SENT REF ID Date Data Source [id number] 10/14/2020 04:05:00 PM EST [facility] Name Value Range Interpretation Code Description Data Odette rce(s) Supporting Document(s) URINALYSIS [facility] URINALYSIS SOURCE R [facility] al COLOR Yellow NORMAL: Yellow [facility] CLARITY Clear NORMAL: Clear [facility] Specific gravity of Urine by Test strip 1.010 1.001 - 1.030 [facility] pH 6 5 - 9 [facility] Glucose [Mass/volume] in Urine by Test strip Negative NORMAL: Negat [facility] Bilirubin.total [Presence] in Urine by Test strip Negative NORMAL: Negative [facility] Ketones [Presence] in Urine by Test strip 50 NORMAL: Negative [facility] Protein [Mass/volume] in Urine by Test strip Negative [facility] Nitrite [Presence] in Urine by Test strip Negative NORMAL: Negative [facility] BLOOD Negative NORMAL: Negative [facility] Leukocyte esterase [Presence] in Urine by Test strip 25 ANUJ L: Negative [facility] Urobilinogen [Mass/volume] in Urine by Test strip NOR less nery n 1.0 mg/dL [facility] MICROSCOPIC See Below [facility] ital WBC 1 - 3 NORMAL: NONE SEEN [facility] EPITHELIAL MODERATE NORMAL: NONE SEEN A [facility] Bacteria [Presence] in Urine sediment by Light microscopy [place] NORMAL: NONE SEEN [facility] ID Date Data Source [id number] 10/14/2020 03:51:00 PM EST [facility] Name Value Range Interpretation Code Description Data Odette rce(s) Supporting Document(s) ABO group [Type] in Blood B [facility] Rh [Type] in Blood POSITIVE [facility] { ABO/RH REENTER B POSITIVE ID Date Data Source [id number] 10/14/2020 03:11:00 PM [facility] Name Value Range Interpretation Code Description Data Odette rce(s) Supporting Document(s) Lipase [Enzymatic activity/volume] in Serum or Plasma 25 U/L 13 - 60 [facility] ID Date Data Source [id number] 10/14/2020 03:11:00 PM EST [facility] Name Value Range Interpretation Code Description Data [facility](s) Supporting Document(s) COMPREHENSIVE METABOLIC PANEL [facility] COMPREHENSIVE METABOLIC PANEL Sodium [Moles/volume] in Serum or Plasma 139 mEq/L 134 - 153 [facility] Potassium [Moles/volume] in Serum or Plasma 3.8 mEq/L 3.6 - 5.0 [facility] Chloride [Moles/volume] in Serum or Plasma 104 mEq/L 98 - 107 [facility] Carbon dioxide, total [Moles/volume] in Serum or Plasma 25 MEQ/L 22 - 30 [facility] Glucose [Mass/volume] in Serum or Plasma 84 MG/DL 65 - 110 [facility] BUN 7 MG/DL 7 - 21 [facility] al Creatinine [Mass/volume] in Serum or Plasma 0.7 MG/DL 0.7 - 1.5 [facility] BUN/CREAT 10 8 - 27 [facility] Protein [Mass/volume] in Serum or Plasma 7.0 G/DL 6.3 - 8.2 [facility] Albumin [Mass/volume] in Serum or Plasma 4.6 G/DL 3.9 - 5.0 [facility] Globulin [Mass/volume] in Serum by calculation 2.4 GM/DL 2.4 - 3.2 [facility] A/G RATIO 1.9 0.8 - 2.0 [facility] Calcium [Mass/volume] in Serum or Plasma 9.5 MG/DL 8.4 - 10.2 [facility] Bilirubin.total [Mass/volume] in Serum or Plasma <0.7 MG/DL 0.2 - 1.3 [facility] Alkaline phosphatase [Enzymatic activity/volume] in Serum or Plasma 50 U/L 38 - 126 [facility] Aspartate aminotransferase [Enzymatic activity/volume] in Serum or Plasma 18 U/L 5 - 40 [facility] Alanine aminotransferase [Enzymatic activity/volume] in Seru m or Plasma 17 U/L 7 - 56 [facility] Anion gap 3 in Serum or Plasma 10.0 mmol/L 8.0 - 16.0 [facility] AGE 25 yrs [facility] NON-AA GFR >60 mL/min [facility] AFR AMER GFR >60 mL/min [facility] Male GFR In terprentation [...] >32 mL/min Normal ID Date Data Source [id number] 10/14/2020 03:09:00 PM EST [facility] Name Value Range Interpretation Code Description Data Odette rce(s) Supporting Document(s) Choriogonadotropin.intact [Units/volume] in Serum or Plasma 34618.0 mIU/mL [facility] Interpr etation: Less than 5 mU/mL: Negative 6-10 mU/mL: Borderline (suggest repeat in 48 hours) >10: Positive Approx HCG range (mU/mL) Weeks post LMP 5.4-708 mU/mL 3-4 Weeks 217-92239 mU/mL 5-6 Weeks 4059-567817 mU/mL 7-8 Weeks 15430-860641 mU/mL 9-10 Weeks 59682-89032 mU/mL 12-14 Weeks 12474-80083 mU/mL 15-16 Weeks 8240- 86465 mU/mL 17-18 Weeks ID Date Data Source [id number] 10/14/2020 02:42:00 PM EST [facility] Name Value Range Interpretation Code Description Data Odette rce(s) Supporting Document(s) Lactate [Moles/volume] in Serum or Plasma 1.2 MMOL/L 0.2 - 2.2 [facility] ID Date Data Source [id number] 10/14/2020 02:29:00 PM EST [facility] Name Value Range Interpretation Code Description Data Odette rce(s) Supporting Document(s) CBC W/AUTOMATED DIFF [facility] COMPLETE BLOOD COUNT Leukocytes [#/volume] in Blood by Automated count 9.1 10^3/uL 4.2 - 1 1.0 [facility] Erythrocytes [#/volume] in Blood by Automated count 4.43 10^6/uL 4. 20 - 5.40 [facility] Hemoglobin [Mass/volume] in Blood 14.0 g/dL 12.0 - 16.0 [facility] Hematocrit [Volume Fraction] of Blood by Automated count 39.5 % 3 7.0 - 47.0 [facility] Erythrocyte mean corpuscular volume [Entitic volume] by Auto mated count 89.2 fL 81.0 - 101 [facility] Erythrocyte mean corpuscular hemoglobin [Entitic mass] by Automated count 31.6 pg 27.0 - 34.0 [facility] Erythrocyte mean corpuscular hemoglobin concentration [Mass/volume] by Automated count 35.4 g/dL 31.0 - 36.0 [facility] Erythrocyte distribution width [Ratio] by Automated count 11.9 % 11.5 - 14.5 [facility] Platelets [#/volume] in Blood by Automated count 231 10^3/uL 150 - 45 0 [facility] Platelet mean volume [Entitic volume] in Blood by Automated count 10.0 fL 7.4 - 10.4 [facility] Neutrophils/100 leukocytes in Blood by Automated count 74.8 % 37. 0 - 80.0 [facility] Lymphocytes/100 leukocytes in Blood by Manual count 18.3 % 25.0 - 40.0 L [facility] Monocytes/100 leukocytes in Blood by Automated count 5.9 % 3.0 - 8.0 [facility] Eosinophils/100 leukocytes in Blood by Automated count 0.5 % 0.0 - 7.0 [facility] Basophils/100 leukocytes in Blood by Automated count 0.3 % 0.0 - 2.5 [facility] %IG 0.2 % 0.0 - 0.0 H [facility] %NR[facility] 0.0 [facility]0 [facility] [#/volume[facility] in Blood by Automated count 6.81 10^3/uL 2.00 - 6.90 [facility] Lymphocytes [#/volume] in Blood by Automated count 1.67 10^3/uL 0.60 - 3.40 [facility] Monocytes [#/volume] in Blood by Automated count 0.54 10^3/uL 0.00 - 0.90 [facility] Eosinophils [#/volume] in Blood by Automated count 0.05 10^3/uL 0.00 - 0.70 [facility] Basophils [#/volume] in Blood by Automated count 0.03 10^3/uL 0.00 - 0.20 [facility] #IG 0.02 10^3/uL 0.00 - 0.10 [facility] #NRBC 0.00 10^3/uL 0.00 - 0.00 [facility] MANUAL DIFF NOT INDICATED [facility] RBC MORPH NOT INDICATED [facility] Procedure Vital Signs ID Date Data Source UNK Name Value Range Interpretation Code Description Data Source(s) Body surface area Derived from formula 1.76 m2 1.76 m2 [facility] ([facility]) Body weight 65.772 kg 65.772 kg [facility]) [place] body weight 135 [lb_av] 135 [facility]_av[facility] Body mass index (BMI) [Ratio] 22.7 kg/m2 22.7 k g/m2 [facility] ([facility]) Body weight 145.00 [lb_av] 145.00 [lb_av] [facility] Body height 67 [in_i] 67 [in_i] [facility] ([facility]) 5'7"
[2020-11-19 15:27] LABS: BLOOD UREA NITROGEN 12 MG/DL (7-18); CARBON DIOXIDE LEVEL 23 MEQ/L (21-32); CHLORIDE LEVEL 102 MEQ/L (98-107); CREATININE FOR GFR 0.73 MG/DL (0.55-1.30); GLOMERULAR FILTRATION RATE > 60.0 (>60); GLUCOSE, FASTING 72 MG/DL (70-100); SODIUM LEVEL 135 MEQ/L (136-145)
--- NOTE | 2020-11-19 16:45 | REP ---
INDICATION: N?V, twin gestation. COMPARISON: 10/30/2020. TECHNIQUE: Real-time sonographic evaluation of pelvis performed. FINDINGS: There is an intrauterine living diamniotic dichorionic twin gestation. The estimated gestational age is 11 weeks 0 days, EDC 06/10/2021. Today's measurements indicate appropriate concordant growth. Fetus a: [place]-rump length of 49 mm corresponds to 11 weeks 5 days age, at the 82nd percentile. heart rate 160 beats per minute. Fetus B: [place]-rump length of 49 mm corresponds to 11 weeks 5 days age, at the 82nd percentile. heart rate 162 beats per minute. There is no subchorionic hemorrhage. The ovaries appear normal. IMPRESSION: Viable intrauterine diamniotic dichorionic twin gestation demonstrating appropriate concordant growth. <Electronically signed by Modesto Richard > 11/19/20 [id number]
[2020-11-19] MEDS ORDERED: ONDANSETRON 4 MG ORAL DISINTEGRATING TAB NG PRN (21:15)
--- NOTE | 2020-11-19 21:33 | ECGEPIP ---
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
--- NOTE | 2020-11-19 21:57 | IPNPDOC ---
Text Note Date of Service The patient was seen on 11/19/20. NOTE Item Value Date Time White Blood Count 8.5 10^3/uL 11/19/20 1453 Red Blood Count 4.87 10^6/uL 11/19/20 1453 Hemoglobin 14.9 g/dl 11/19/20 1453 Hematocrit 43.5 % 11/19/20 1453 Mean Corpuscular Volume 89.3 fl 11/19/20 1453 Mean Corpuscular Hemoglobin 30.6 pg 11/19/20 1453 Mean Corpuscular Hemoglobin Concent 34.3 g/dl 11/19/20 1453 Red Cell Distribution Width 12.3 % 11/19/20 1453 Platelet Count 247 10^3/uL 11/19/20 1453 Immature Granulocyte % (Auto) 0.2 % 11/19/20 1453 Neutrophils (%) (Auto) 81.3 % H 11/19/20 1453 Lymphocytes (%) (Auto) 14.3 % L 11/19/20 1453 Monocytes (%) (Auto) 3.9 % 11/19/20 1453 Eosinophils (%) (Auto) 0.1 % 11/19/20 1453 Basophils (%) (Auto) 0.2 % 11/19/20 1453 Neutrophils # (Auto) 6.9 10^3/uL 11/19/20 1453 Lymphocytes # (Auto) 1.2 10^3/uL L 11/19/20 1453 Monocytes # (Auto) 0.3 10^3/uL 11/19/20 1453 2142 pm 11/19/20 25 yo LMP 08/02/2021 EDC 06/10/2021 AT 11.2 WEEKS THIRD ADMISSION FOR NAUSEA DIZZINESS UNABLE TO KEEP ANYTHING DOWN FOR 3 DAYS. PATIENT SAYS ALL ANTI NAUSEA MEDICATIONS DO NOT WORK. SHE SAYS HAS ORTHOSTATIC HYPOTENSION DESPITE NO BP CHANGES BUT HAS TACHYCARDIA . SHE SAYS ZOFRAN,SCOPOLAMINE PATCH, PHENERGAN SUPPOSITORIES REGLAN DOES NOT WORK . WHILE IN ED NO VOMITING REFUSED TO TRY LIQUIDS STATES WILL THROW ALL UP. HISTORY; G1 PO NO STD HSV HPV MOTHER PELVIC FRACTURE MIGRAINES ACTIVE DUTY WITH PROFILE CHANGE LATEX AND NATURAL RUBBER ALLERGY PLAN TO ADMIT TO OBSERVATION REDO US MONITOR VITALS DAILY WEIGHT. INVESTIGATION TO DATE URINE NEGATIVE FOR KETONES , BUN CREATININE NORMAL ANION GAP NORMAL. VS,Fishbone, I+O VS, Fishbone, I+O Item Value Date Time Sodium Level 135 MEQ/L L 11/19/20 1453 Potassium Level 4.0 MEQ/L 11/19/20 1453 Chloride Level 102 MEQ/L 11/19/20 1453 Carbon Dioxide Level 23 MEQ/L 11/19/20 1453 Anion Gap 10 MEQ/L 11/19/20 1453 Blood Urea Nitrogen 12 MG/DL 11/19/20 1453 Creatinine 0.73 MG/DL 11/19/20 1453 Glomerular Filtration Rate > 60.0 11/19/20 1453 Fasting Glucose 72 MG/DL 11/19/20 1453 Calcium Level 9.0 MG/DL 11/19/20 1453 Laboratory Tests 11/19/20 14:53 Vital Signs Date Time Temp Pulse Resp B/P (MAP) Pulse Ox O2 Delivery O2 Flow Rate FiO2 11/19/20 20:26 99.3 80 18 118/64 (82) 98 11/19/20 13:52 Room Air Miguel Toure MD Nov 19, 2020 21:55
[2020-11-19] MEDS: LR 1,000 ML IV SCH (22:09)
[2020-11-19] MEDS ORDERED: ACETAMINOPHEN 500 MG TAB PO ONE (22:30)
[2020-11-19] MEDS: ONDANSETRON 4MG/2ML VIAL IV PRN (22:48)
[2020-11-19] MEDS ORDERED: ONDA8TAB10 PO (23:19)
[2020-11-20] VITALS (7 sets, daily range): BP systolic 99–122; BP diastolic 55–74
[2020-11-20 00:07] LABS: RSV AMPLIFICATION NEGATIVE (NEGATIVE)
--- OUTSIDE RECORDS SUMMARY | 2020-11-20 01:33 | CCD ---
Author Author [facility] Organization [facility] Address Unknown Phone Unavailable Care Team Providers Care Game Attendant Name Role Phone RAMONSoham BAH Unavailable Unavailable [...] is protected by Article 27-F of the [place] State Public Health law. If you continue you may have access to information: Regarding HIV / AIDS; Provided by facilities licensed or operated by the [facility] Office of Mental Health; or Provided by the [facility] Office for People With Developmental Disabilities. If such information is present, then the following [facility] mandated warning applies: This information has [...] law may result in a fine or retirement sentence or both. A general authorization for the release of medical or other information is NOT sufficient authorization for further disc losure. Encounters Encounter Providers Location Date Indications Data Source(s ) Emergency Attender: FRANCIA NAVARROJONOCOConsultant: JUN UNKNOWN 10/14/2020 01:41:00 PM EST - 10/14/2020 04:58:00 PM [facility] Patient discharged. Medications Medication Brand Name Start [...] type / Coverage type Policy ID Covered constitution party ID Covered constitution party's relationship to oden Policy Oden Plan Information [facility] ACTIVE DUTY [id number] SP [id number] [employer] [facility] REG O [id number] S [id number] [facility] [id number] 18 [id number] Problems, Conditions, and Diagnoses Code Display Name Description Problem Type Effective Dates Data Source(s) J17626 Latex allergy status Latex allergy status Diagnosis 10/14/2020 01:41:00 PM [facility] Z3A10 10 weeks gestation of 10 weeks gestation of Diagnosis 10/14/2020 01:41:00 PM [facility] O219 Vomiting of , unspecified Vomiting of p regnancy, unspecified Diagnosis 10/14/2020 01:41:00 PM [facility] Results ID Date Data Source [id number] 10/30/2020 03:36:00 PM EST [facility] Name Value Range Interpretation Code Description Data Odette rce(s) Supporting Document(s) SARS coronavirus 2 RNA [Presence] in Res piratory specimen by NANCY with probe detection NEGATIVE [facility] This lab was ordered by [facility] a nd reported by [facility]. ID Date Data Source [id number] 10/19/2020 08:45:00 AM EST [facility] [address] [place] [address] PHONE: [phone] FAX: [phone] Name .................. : LUCAS GARCÍA Acct Number.................. : [id number] ROOM. ................. : [facility] Number ................... : [id number] Stay type ............. : E/R Discharge Date......... ... : 10/14/20 Admit Date ......... : 10/14/20 Admit Phys .................... : LATASHA Date of ....... : 1995 Family Phys ................... : UNKNOWN Phone .................. : [phone] Age ................................ : 25 Film# .................. .:[id number] Sex ................................. : F Unsigned transcriptions are preliminary reports and do not represent a medical or legal document US OB 1ST TRI UP TO 14 WEEKS 12096 COMPLETE:10/14/20 15:02 KNB 1679 Reason(s): NV abd pain 10 weks gestation US OB 1ST TRI UP TO 14 [place] [address] COMPLETE:10/14/20 15:02 KNB 1678 (REASON FOR OBS: [...] rce(s) Supporting Document(s) ID Date Data Source [id number] 10/19/2020 08:45:00 AM EST [facility] [address] [place] [address] PHONE: [phone] FAX: [phone] Name .................. : LUCAS GARCÍA Acct Number.................. : [id number] ROOM. ................. : TR-08 MR Number ................... : [id number] Stay type ............. : E/R Discharge Date......... ... : 10/14/20 Admit Date ......... : 10/14/20 Admit Phys .................... : RAMONNIURKA Date of ....... : 1995 Family Phys ................... : UNKNOWN Phone .................. : [phone] Age ................................ : 25 Film# .................. .:[id number] Sex ................................. : F Unsigned transcriptions are preliminary reports and do not represent a medical or legal document US OB 1ST TRI UP TO 14 WEEKS [address]6832 COMPLETE:10/14/20 15:02 KNB 1673 Reason(s): NV abd pain 10 weks gestation US OB 1ST TRI UP TO 14 WKS [place] [id number] COMPLETE:10/14/20 15:02 KNB 1678 (REASON FOR OBS: [...] rce(s) Supporting Document(s) ID Date Data Source [id number] 10/17/2020 02:50:00 PM EST [facility] Name Value Range Interpretation Code Description Data Odette rce(s) Supporting Document(s) SARS coronavirus 2 RNA [Presence] in Res piratory specimen by NANCY with probe detection NEGATIVE [facility] This lab was ordered by [facility] a nd reported by [facility]. ID Date Data Source [id number] 10/14/2020 01:41:00 PM EST [facility] 1 OrderSheet [facility] Emergency Department [address] [place] [address] Phone #: [phone]- [phone] 10/14/2020 13:24 Patient: RICKY ZAVALA Sex: F [...] Description Priority Entered Acknowledged Initialed 2 OrderSheet [facility] Emergency Department [address] [place] [address] Phone #: ext- [phone] 10/14/2020 13:24 Patient: [...] rce(s) Supporting Document(s) ID Date Data Source [id number] 10/14/2020 01:41:00 PM EST [facility] 1 Medication Reconciliation Report [facility] Emergency Department [address] [place] [address] Phone #: [phone]- [phone] 10/14/2020 13:24 Patient: RICKY ZAVALA Sex: F [...] 6 tablet. Refills: 0. Substitution permitted.Pharmacy - [facility] [address] [facility] ; [place] [address]. .Reglan 10 mg tablet Take 1 tablet every eight hours as needed for 2 days -- for nausea. Dispense 6tablet. Refills: 0. Substitution permitted.Pharmacy - [facility] [facility] ; [place], [place] [id number]. . -- ANDREW Mccoy Name Value Range Interpretation Code Description Data Odette rce(s) Supporting Document(s) ID Date Data Source [id number] 10/14/2020 01:41:00 PM [place] [address] Medication Administration Record [facility] Emergency Department [address] [place] [address] Phone #: [phone]- [phone] 10/14/2020 13:24 Patient: RICKY ZAVALA Sex: F : 1995 Age: 25yWeight: 71.4 kgHeight/Length: 67 inBMI: 24.7ALLERGIES: Latex, No Known Drug Allergy Date/Time Medication Administered Medication OrderedGiven REGLAN [IVP] (METOCLOPRAMIDE Reglan IVP 10 mg14:23 10/14/2020 HCL)Desiree Campbell, Dose: 10 mg IVP Site: #1 right forearmStart NS [IV] NS IV : Bolus 1000 mL, then 14191:19 10/14/2020 Dose: IV Fluids mL/hr (NOW x1)Desiree Campbell, Rate: 980 mL/hr over 1 hour(s)---- Dispensed: 1000 mL bagStop Site: #1 right kmoxpfv27:45 10/14/2020Desiree leung, Name Value Range Interpretation Code Description Data Odette rce(s) Supporting Document(s) ID Date Data Source [id number] 10/14/2020 01:41:00 PM [facility] 1 General Instructions [facility] Emergency Department [address] [place] [address] Phone #: ext- [phone] 10/14/2020 13:24 Patient: RICKY ZAVALA Sex: F [...] 6 tablet. Refills: 0. Substitution permitted.Pharmacy - [facility] [address] [facility] ; [place] [address]. .Reglan 10 mg tablet Take 1 tablet every eight hours as needed for 2 days -- for nausea. Dispense 6tablet. Refills: 0. Substitution permitted.Pharmacy - [facility] [address] [place], [place] [id number]. .Follow-up:Follow up with your healthcare provider in one day as scheduled even if well. Reason for referral: f/u withOB in [place] as scheduled tomorrow. Summary of care provided to patient via paper.Understanding of the discharge instructions verbalized by patient. Expected course of illness, dischargeinstructions, activity level, prescriptions x1, follow-up appointment and risks and benefits of treatmentreviewed with patient and understanding verbalized. Agrees to plan of care. 2 General Instructions [facility] Emergency Department [address] [place] [address] Phone #: ext- [phone] 10/14/2020 13:24 Patient: [...] Food cravings or turn-offs 3 General Instructions [facility] Emergency Department [address] [place] [address] Phone #: ext- [phone] 10/14/2020 13:24 Patient: [...] You can seeyour family provider, a specialist (jail guard), a cold roll packer sheet iron, or a primary care clinic.When to seek medical advice 4 General Instructions [facility] Emergency Department [address] [place] [address] Phone #: ext- [phone] 10/14/2020 13:24 [id number] Sex: F : 1995 Age: 25yCall your healthcare provider right away if any of these occur: Vaginal bleeding Pain in your belly (abdomen) or back that is moderate or severe Lots of vomiting, or you can't keep any fluids down for 6 hours Burning feeling when you urinate Headache, dizziness, or rapid weight gain Fever Vision changes or blurred vision [phone] [employer] [address] [place] [address], [place] [address]. All rights reserved. This information is not [...] the most common symptoms: 5 General Instructions [facility] Emergency Department [address] [place] [address] Phone #: ext- [phone] 10/14/2020 13:24 Patient: [...] baby. Also avoid marijuana. 6 General Instructions [facility] Emergency Department [address] [place] [address] Phone #: ext- [phone] 10/14/2020 13:24 Patient: RICKY ZAVALA Sex: F [...] You can seeyour family provider, a specialist (jail guard), a cold roll packer sheet iron, or a primary care clinic.When to seek medical adviceCall your healthcare provider right away if any of these occur: Vaginal bleeding Pain in your belly (abdomen) or back that is moderate or severe Lots of vomiting, or you can't keep any fluids down for 6 hours Burning feeling when you urinate Headache, dizziness, or rapid weight gain Fever Vision changes or blurred vision 2653-[address] [employer] [address] [place] [address], [place] [address]. All rights reserved. This information is not [...] rce(s) Supporting Document(s) ID Date Data Source [id number] 10/14/2020 01:41:00 PM EST [facility] 1 Clinical Report - Nurses [facility] Emergency Department [address] [place] [address] Phone #: ext- [phone] 10/14/2020 13:24 Patient: RICKY ZAVALA Sex: F [...] Currently . 2 Clinical Report - Nurses [facility] Emergency Department [address] [place] [address] Phone #: ext- [phone] 10/14/2020 13:24 Patient: [...] Desiree Campbell 3 Clinical Report - Nurses [facility] Emergency Department [address] [place] [address] Phone #: ext- [phone] 10/14/2020 13:24 Patient: CIEMINSKI, RICKY Sex: F [...] Patient returned from sonogram by wheelchair with electrical/instrument technician. --15:00 10/14/20 Campbell, Desiree 15:45 10/14/2020 IV [...] able to pickle pumper her medications tonight. [facility] pharmacy will be closed. pharmacy will be changed to [facility] in [place]. Valdemar ribera.). --16:59 10/14/20 Campbell, Desiree 16:57 [...] instructions provided. Written instructions not provided in Senegalese. The patient was discharged by the physician chef's assistant. She was discharged home. She left ambulatory and via private vehicle. --17:01 10/14/20 Campbell, Desiree 17:02 10/14/20. O2 saturation: 98%. --17:03 10/14/20 Campbell, Desiree 17:03 10/14/20. Pain level now 0/10. --17:03 10/14/20 Desiree Campbell Departure time: 16:58 10/14/2020. --17:04 10/14/20 Desiree Campbell. 4 Clinical Report - Nurses [facility] Emergency Department [address] [place] [address] Phone #: ext- [phone] 10/14/2020 13:24 Patient: RICKY ZAVALA Sex: F : 1995 Age: 25yLocked/Released at 10/14/2020 17:07 by Desiree Campbell Name Value Range Interpretation Code Description Data Odette rce(s) Supporting Document(s) ID Date Data Source [id number] 10/14/2020 01:41:00 PM EST [facility] 1 Clinical Report - Physicians/Mid Levels [facility] Emergency Department [address] [place] [address] Phone #: ext- [phone] 10/14/2020 13:24 Patient: [...] vaginal bleeding or discharge, followed by OB [facility], has appt tomorrow there. No fever.). Similar [...] HISTORY 2 Clinical Report - Physicians/Mid Levels [facility] Emergency Department [address] [place] [address] Phone #: ext- [phone] 10/14/2020 13:24 Patient: RICKY ZAVALA Sex: F [...] Test Result Flag Units (Reference) HCG QUANT 92726.0 mIU/mL Interpretation: Less than 5 mU/mL: Negative 6-10 mU/mL: Borderline (suggest repeat in 48 hours) >10: Positive Approx HCG range (mU/mL) Weeks post LMP 5.4-708 mU/mL 3-4 Weeks 217-96329 mU/mL 5-6 Weeks 4059-512504 mU/mL 7-8 Weeks 09298-593313 mU/mL 9-10 Weeks 67424-70292 mU/mL 12-14 Weeks 3 Clinical Report - Physicians/Mid Levels [facility] Emergency Department [address] [place] [address] Phone #: ext- [phone] 10/14/2020 13:24 Patient: RICKY ZAVALA Sex: F : 1995 Age: 27a[address] mU/mL 15-16 Weeks 8240-79375 mU/mL 17-18 WeeksCBC w Diff: (SHARDA: 10/14/2020 [...] mL/min 4 Clinical Report - Physicians/Mid Levels [facility] Emergency Department [address] [place] [address] Phone #: ext- [phone] 10/14/2020 13:24 Patient: IRCKY ZAVALA Sex: F : 1995 Age: 25y [...] - 2.2) Lipase: (SHARDA: 10/14/2020 14:15) ( [facility] 10/14/2020 15:11) Final results Test Result Flag Units (Reference) LIPASE 25 U/L (13 - 60) Urinalysis: (SHARDA: 10/14/2020 15:20) ( [facility] 10/14/2020 16:05) Final results Test Result Flag [...] NONE Type Rh: (SHARDA: 10/14/2020 14:15) ( [facility] 10/14/2020 15:52) Final results Test Result Flag Units (Reference) ABO GROUP B RH TYPE POSITIVE { ABO/RH REENTER B POSITIVE OB 1ST TRI UP TO 14 WEEKS: (SHARDA: 10/14/2020 13:51) ( [facility] 10/14/2020 15:02) In Progress US OB 1ST TRI UP TO 14 WEEKS Reason(s): NV abd pain 10 weks gestation TRANSPORTATION: WC IV? IV?(Yes) O2? Oxygen?(No) Ro. 5 Clinical Report - Physicians/Mid Levels [facility] Emergency Department [address] [place] [address] Phone #: ext- [phone] 10/14/2020 13:24 Patient: RICKY ZAVALA Sex: F [...] tablet. Refills: 0. Substitution permitted. Pharmacy - [facility] [id number] [place] [address] ; [place] [address]. . Reglan 10 mg tablet Take 1 tablet every eight hours as needed for 2 days -- for nausea. Dispense 6 tablet. Refills: 0. Substitution permitted. Pharmacy - [facility] [address] [place], [place] [id number]. . 6 Clinical Report - Physicians/Mid Levels [facility] Emergency Department [address] [place] [address] Phone #: ext- [phone] 10/14/2020 13:24 Patient: RICKY ZAVALA Sex: F : 1995 Age: 25y Follow-up: Follow up with your healthcare provider in one day as scheduled even if well. Reason for referral: f/u with OB in [place] as scheduled tomorrow. Summary of care provided [...] rce(s) Supporting Document(s) ID Date Data Source [id number] 10/19/2020 06:12:00 AM [facility] Name Value Range Interpretation Code Description Data Odette rce(s) Supporting Document(s) CULTURE URINE [facility] _CULTURE URINE_$$[id number]$$[id number]$$320880$$748022$$997547$$529786$$216939$$865275$$663438$$ 283986$$482391$$250731$$903461$$014680$$407922$$357846$$346577$$099184$$290203$$ 327139$$283450$$382735$$921801$$864342$$632681$$335288$$335801 -- Continued on next page --Patient: LUCAS GARCÍA Order: [id number] Page 2Culture: CULTURE URINE Status: Final ==== -- Continued on next page --Patient: LUCAS GARCÍA Order: [id number] Page 2Culture: CULTURE URINE Status: Prelim =====$$[id number]$$[id number] DATE/TIME: 10/18/2020 16:06Culture: CULTURE URINE Status: FinalIsolate 1 Enterococcus faecalis Flag: A . . . . . . .710,000-25,000 colony forming units per mL Previous result entered on 10/17/2020 03:12 ET Microbiological testing to rule out the presence of possible pathogensis in progress.Urine Culture,Comprehensive: K5Ipottniidqdy faecalis Flag: APatient: LUCAS GARCÍA Order: [id number] Page 3Culture: CULTURE URINE Status: Final ISOLATE 1 Enterococcus faecalis Isolate 1Antibiotic SIDRA IntUnits ug/mL Ciprofloxacin S S . . . . . .185-9Levofloxacin S S . . . . . .73845- 8Nitrofurantoin S S . . . . . .363-2Penicillin S S . . . . . .6932-8Tetracycline S S . . . . . .496-0Vancomycin S S . . . . . .524-9P1 Test performed by: [facility] VIOLET #: [id number] [address] [place] [id number] [facility] [id number] Director : Silvestre Dsouza MD NPI #:Dredge Operator : 10/18/20.XMT.SENT REF 10/19/20.XMT.SENT REF ID Date Data Source [id number] 10/14/2020 04:05:00 PM EST [facility] Name Value Range Interpretation Code Description Data Odette rce(s) Supporting Document(s) URINALYSIS [facility] URINALYSIS SOURCE R [facility] al COLOR Yellow NORMAL: Yellow [facility] CLARITY Clear NORMAL: Clear [facility] Specific gravity of Urine by Test strip 1.010 1.001 - 1.030 [facility] pH 6 5 - 9 [facility] al Glucose [Mass/volume] in Urine by Test strip Negative NORMAL: Negat [facility] Bilirubin.total [Presence] in Urine by Test strip Negative NORMAL: Negative [facility] Ketones [Presence] in Urine by Test strip 50 NORMAL: Negative [facility] Protein [Mass/volume] in Urine by Test strip Negative [facility] Nit[facility] [Presence] in Urine by Test strip Negative NORMAL: Negative [facility] BLOOD Negative NORMAL: Negative [facility] Leukocyte esterase [Presence] in Urine by Test strip 25 ANUJ L: Negative [facility] Urobilinogen [Mass/volume] in Urine by Test strip NOR less nery n 1.0 mg/dL [facility] MICROSCOPIC See Below [facility] ital WBC 1 - 3 NORMAL: NONE SEEN [facility] EPITHELIAL MODERATE NORMAL: NONE SEEN A [facility] Bacteria [Presence] in Urine sediment by Light microscopy [place] NORMAL: NONE SEEN [facility] ID Date Data Source [id number] 10/14/2020 03:51:00 PM EST [facility] Name Value Range Interpretation Code Description Data Odette rce(s) Supporting Document(s) ABO group [Type] in Blood B [facility] Rh [Type] in Blood POSITIVE [facility] { ABO/RH REENTER B POSITIVE ID Date Data Source [id number] 10/14/2020 03:11:00 PM [facility] Name Value Range Interpretation Code Description Data Odette rce(s) Supporting Document(s) Lipase [Enzymatic activity/volume] in Serum or Plasma 25 U/L 13 - 60 [facility] ID Date Data Source [id number] 10/14/2020 03:11:00 PM EST [facility] Name Value Range Interpretation Code Description Data [facility](s) Supporting Document(s) COMPREHENSIVE METABOLIC PANEL [facility] COMPREHENSIVE METABOLIC PANEL Sodium [Moles/volume] in Serum or Plasma 139 mEq/L 134 - 153 [facility] Potassium [Moles/volume] in Serum or Plasma 3.8 mEq/L 3.6 - 5.0 [facility] Chloride [Moles/volume] in Serum or Plasma 104 mEq/L 98 - 107 [facility] Carbon dioxide, total [Moles/volume] in Serum or Plasma 25 MEQ/L 22 - 30 [facility] Glucose [Mass/volume] in Serum or Plasma 84 MG/DL 65 - 110 [facility] BUN 7 MG/DL 7 - 21 [facility] al Creatinine [Mass/volume] in Serum or Plasma 0.7 MG/DL 0.7 - 1.5 [facility] BUN/CREAT 10 8 - 27 [facility] Protein [Mass/volume] in Serum or Plasma 7.0 G/DL 6.3 - 8.2 [facility] Albumin [Mass/volume] in Serum or Plasma 4.6 G/DL 3.9 - 5.0 [facility] Globulin [Mass/volume] in Serum by calculation 2.4 GM/DL 2.4 - 3.2 [facility] A/G RATIO 1.9 0.8 - 2.0 [facility] Calcium [Mass/volume] in Serum or Plasma 9.5 MG/DL 8.4 - 10.2 [facility] Bilirubin.total [Mass/volume] in Serum or Plasma <0.7 MG/DL 0.2 - 1.3 [facility] Alkaline phosphatase [Enzymatic activity/volume] in Serum or Plasma 50 U/L 38 - 126 [facility] Aspartate aminotransferase [Enzymatic activity/volume] in Serum or Plasma 18 U/L 5 - 40 [facility] Alanine aminotransferase [Enzymatic activity/volume] in Seru m or Plasma 17 U/L 7 - 56 [facility] Anion gap 3 in Serum or Plasma 10.0 mmol/L 8.0 - 16.0 [facility] AGE [address] [facility] NON-AA GFR >60 mL/min [facility] ital AFR AMER GFR >60 mL/min [facility] Male GFR In terprentation 20-49 [...] >32 mL/min Normal ID Date Data Source [id number] 10/14/2020 03:09:00 PM EST [facility] Name Value Range Interpretation Code Description Data Odette rce(s) Supporting Document(s) Choriogonadotropin.intact [Units/volume] in Serum or Plasma 21005.0 mIU/mL [facility] Interpr etation: Less than 5 mU/mL: Negative 6-10 mU/mL: Borderline (suggest repeat in 48 hours) >10: Positive Approx HCG range (mU/mL) Weeks post LMP 5.4-708 mU/mL 3-4 Weeks 217-45687 mU/mL 5-6 Weeks 4059-344809 mU/mL 7-8 Weeks 97683-230959 mU/mL 9-10 Weeks 35574-53645 mU/mL 12-14 Weeks 61559-98755 mU/mL 15-16 Weeks 8240- 66099 mU/mL 17-18 Weeks ID Date Data Source [id number] 10/14/2020 02:42:00 PM EST [facility] Name Value Range Interpretation Code Description Data Odette rce(s) Supporting Document(s) Lactate [Moles/volume] in Serum or Plasma 1.2 MMOL/L 0.2 - 2.2 [facility] ID Date Data Source [id number] 10/14/2020 02:29:00 PM EST [facility] Name Value Range Interpretation Code Description Data Odette rce(s) Supporting Document(s) CBC W/AUTOMATED DIFF [facility] COMPLETE BLOOD COUNT Leukocytes [#/volume] in Blood by Automated count 9.1 10^3/uL 4.2 - 1 1.0 [facility] Erythrocytes [#/volume] in Blood by Automated count 4.43 10^6/uL 4. 20 - 5.40 [facility] Hemoglobin [Mass/volume] in Blood 14.0 g/dL 12.0 - 16.0 [facility] Hematocrit [Volume Fraction] of Blood by Automated count 39.5 % 3 7.0 - 47.0 [facility] Erythrocyte mean corpuscular volume [Entitic volume] by Auto mated count 89.2 fL 81.0 - 101 [facility] Erythrocyte mean corpuscular hemoglobin [Entitic mass] by Automated count 31.6 pg 27.0 - 34.0 [facility] Erythrocyte mean corpuscular hemoglobin concentration [Mass/volume] by Automated count 35.4 g/dL 31.0 - 36.0 [facility] Erythrocyte distribution width [Ratio] by Automated count 11.9 % 11.5 - 14.5 [facility] Platelets [#/volume] in Blood by Automated count 231 10^3/uL 150 - 45 0 [facility] Platelet mean volume [Entitic volume] in Blood by Automated count 10.0 fL 7.4 - 10.4 [facility] Neutrophils/100 leukocytes in Blood by Automated count 74.8 % 37. 0 - 80.0 [facility] Lymphocytes/100 leukocytes in Blood by Manual count 18.3 % 25.0 - 40.0 L [facility] Monocytes/100 leukocytes in Blood by Automated count 5.9 % 3.0 - 8.0 [facility] Eosinophils/100 leukocytes in Blood by Automated count 0.5 % 0.0 - 7.0 [facility] Basophils/100 leukocytes in Blood by Automated count 0.3 % 0.0 - 2.5 [facility] %IG 0.2 % 0.0 - 0.[address] [facility] %NRBC 0.0 % 0.0 - 0.0 [facility] [#/volume] in Blood by Automated count 6.81 10^3/uL 2.00 - 6.90 [facility] [facility] Lymphocytes [#/volume] in Blood by Automated count 1.67 10^3/uL 0.60 - 3.40 [facility] Monocytes [#/volume] in Blood by Automated count 0.54 10^3/uL 0.00 - 0.90 [facility] Eosinophils [#/volume] in Blood by Automated count 0.05 10^3/uL 0.00 - 0.70 [facility] Basophils [#/volume] in Blood by Automated count 0.03 10^3/uL 0.00 - 0.20 [facility] #IG 0.02 10^3/uL 0.00 - 0.10 [facility] #NRBC 0.00 10^3/uL 0.00 - 0.00 [facility] MANUAL DIFF NOT INDICATED [facility] RBC MORPH NOT INDICATED [facility] Procedure Vital Signs ID Date Data Source UNK Name Value Range Interpretation Code Description Data Source(s) Body surface area Derived from formula 1.76 m2 1.76 m2 [facility] ([facility]) Body weight 65.772 kg 65.772 kg [facility]) [place] body weight 135 [lb_av] 135 [lb_av] [facility] Body mass index (BMI) [Ratio] 22.7 kg/m2 22.7 k g/m2 [facility] ([facility]) Body weight 145.00 [lb_av] 145.00 [lb_av] [facility] Body height 67 [in_i] 67 [in_i] [facility] ([facility]) 5'7"
[2020-11-20] MEDS: LR 1,000 ML IV SCH ×3 (06:40→22:44)
[2020-11-20] MEDS: ONDANSETRON 4MG/2ML VIAL IV PRN ×3 (06:53→22:44)
--- NOTE | 2020-11-20 08:34 | REPVR ---
PROCEDURE INFORMATION: Exam: US First Trimester, Transabdominal Exam date and time: 11/20/2020 6:44 AM Age: 25 years old Clinical indication: Lmp or gestational age (in weeks): 11w 1d; Other: N/v; ; Additional info: Viability gest age di/di twins edc 06/10/2021 TECHNIQUE: Imaging protocol: Real-time transabdominal obstetrical ultrasound of the maternal pelvis and a first trimester , less than 14 weeks 0 days, with image documentation. COMPARISON: No relevant prior studies available. FINDINGS: Fetus A: Winigan-rump length measures 5.2 cm. Gestational age is 11 weeks 6 days. Yolk sac is seen. heart rate is 153 bpm. Fetus B: Winigan-rump length measures 5.1 cm. Gestational age is 11 weeks 6 days. Yolk sac is seen. heart rate is 153 bpm. IMPRESSION: Fetus A: Winigan-rump length measures 5.2 cm. Gestational age is 11 weeks 6 days. Yolk sac is seen. heart rate is 153 bpm. Fetus B: Winigan-rump length measures 5.1 cm. Gestational age is 11 weeks 6 days. Yolk sac is seen. heart rate is 153 bpm. Findings are stable from prior examination. Electronically signed by: Nayana Bonilla On 11/20/2020 08:35:01 AM
[2020-11-20] MEDS: MIRALAX *UNIT DOSE* 17GM PACKET PO SCH (09:02)
[2020-11-21 00:11] VITALS: BP 114/69
[2020-11-21] MEDS: LR 1,000 ML IV SCH (05:53)
[2020-11-21 06:13] VITALS: BP 114/67
[2020-11-21 07:47] VITALS: BP 111/67
[2020-11-21] MEDS: ONDANSETRON 4MG/2ML VIAL IV PRN ×2 (08:33→19:51)
[2020-11-21] MEDS: MIRALAX *UNIT DOSE* 17GM PACKET PO SCH (08:33)
[2020-11-21] MEDS ORDERED: PROMETHAZINE INJ 25 MG/ML VIAL (J2550) IV PRN (09:15)
--- NOTE | 2020-11-21 09:48 | IPNPDOC ---
Obstetrical Progress Note Date of Service Nov 21, 2020 Subjective 25 yo G1 @ 11+2 who is admitted for nausea and Vomiting. this is her 3rd Admission. she reports at home she stopped taking rectal phenergan because it was making her sleepy about a week ago, while she was taking this medication her nausea was controled and she was able to tolerated po intake. 3 days after she stopped taking the phenergan, her nausea and vomiting worsened.patient is curr ently taking IV Zofran and Miralax. Toda, she continues to reports nausea and had one episode of emesis last night. she reports epigastric pain associated with vomiting. she denies any fevers, chills. PE Vitals revieweds Heart: regular rate Lungs: normal work of breathing Abd: epigastric tenderness EXT; Grossly normal LABS +2 KETONES Rads PROCEDURE INFORMATION: Exam: US First Trimester, Transabdominal Exam date and time: 11/20/2020 6:44 AM Age: 25 years old Clinical indication: Lmp or gestational age (in weeks): 11w 1d; Other: N/v; ; Additional info: Viability gest age di/di twins edc 06/10/2021 TECHNIQUE: Imaging protocol: Real-time transabdominal obstetrical ultrasound of the maternal pelvis and a first trimester , less than 14 weeks 0 days, with image documentation. COMPARISON: No relevant prior studies available. FINDINGS: Fetus A: Mccammon-rump length measures 5.2 cm. Gestational age is 11 weeks 6 days. Yolk sac is seen. heart rate is 153 bpm. Fetus B: Mccammon-rump length measures 5.1 cm. Gestational age is 11 weeks 6 days. Yolk sac is seen. heart rate is 153 bpm. IMPRESSION: Fetus A: Mccammon-rump length measures 5.2 cm. Gestational age is 11 weeks 6 days. Yolk sac is seen. heart rate is 153 bpm. Fetus B: Mccammon-rump length measures 5.1 cm. Gestational age is 11 weeks 6 days. Yolk sac is seen. heart rate is 153 bpm. Findings are stable from prior examination. Electronically signed by: Nayana Bonilla On 11/20/2020 08:35:01 AM A/P 25 yo G1 @ 11+2 who is admitted for nausea and Vomiting. Hemodynamically stable. Viable di/di twin . -Will add phenergan to current regimen. -continue clears diet and advance as tolerated -continue to observe inhouse! Objective Vital Signs Date Time Temp Pulse Resp B/P (MAP) Pulse Ox O2 Delivery O2 Flow Rate FiO2 11/21/20 07:47 98.4 56 16 111/67 (82) 97 Room Air MALA PACHECO MD Nov 21, 2020 09:48
[2020-11-21 12:00] VITALS: BP 99/61
[2020-11-21] MEDS: NS 1,000 ML IV SCH ×2 (13:44→21:32)
[2020-11-21] MEDS ORDERED: PROMETHAZINE 25 MG TAB PO PRN (16:00)
[2020-11-21] MEDS ORDERED: PROMETHAZINE 25MG SUPP PR PRN (16:00)
[2020-11-21 16:30] VITALS: BP 113/60
[2020-11-21 20:00] VITALS: BP 109/60
[2020-11-22] VITALS: BP 100/55
[2020-11-22 04:00] VITALS: BP 100/53
[2020-11-22 08:00] VITALS: BP 97/53
[2020-11-22] MEDS: ONDANSETRON 4MG/2ML VIAL IV PRN (08:42)
[2020-11-22] MEDS: MIRALAX *UNIT DOSE* 17GM PACKET PO SCH (09:34)
--- NOTE | 2020-11-22 11:11 | DS.PDOC ---
Discharge Summary General Date of Admission Nov 19, 2020 at 13:52 Date of Discharge 11/22/20 Discharge Summary PROCEDURES PERFORMED DURING STAY: None. ADMITTING DIAGNOSES: 1. Di/di twin gestation 2. Hyperemesis gravidarum 3. 11 weeks gestation DISCHARGE DIAGNOSES: 1. Di/di twin gestation 2. Hyperemesis gravidarum 3. 11 weeks gestation COMPLICATIONS/CHIEF COMPLAINT: Nausea and vomiting HISTORY OF PRESENT ILLNESS: Samara presented to the ER after several days of persistent nausea and vomiting refractory to phenergan, zofran, unisom, and B6. She reported a 23lb weight loss since onset of . She is also noted to have a vestibular concern currently under investigation with ENT/audiology/Neuro causing her to have frequent falls and has been using a walker for balance. HOSPITAL COURSE: Samara was admitted from the ER to the antepartum [facility]ia where she was made NPO, started on IV hydration, and a strict regimen of zofran and phenergan was started. She was gradually advanced in her diet to a BRAT diet and was able to tolerate several meals without emesis. She remained afebrile and normotensive throughout her stay. On day of discharge, she was voiding spontaneously, tolerating PO, and no episodes of vomiting for last 24hrs. She was therefore discharged home on hospital day #4 in stable condition. She was counseled extensively on BRAT diet and adherence to an antiemetic regimen. She is already scheduled for outpatient follow-up in 48 hours. She was also counseled on strict bleeding/pain precautions. DISCHARGE MEDICATIONS: 1. Zofran 8mg ODT q6h PRN nausea/vomiting 2. Phenergan 25mg PO q8h 3. Omeprazole 40mg qAM She will continue the medications as previously prescribed: Unisom/B6 at bedtime ALLERGIES: Please see below. PHYSICAL EXAMINATION ON DISCHARGE: VITAL SIGNS: Please see below. GENERAL: Well-appearing, sitting upright in bed, conversing in full sentences in NAD HEENT: NC/AT, airway patent and self-maintained CARDIOVASCULAR EXAMINATION: well-perfused, normal HR RESPIRATORY EXAMINATION: No exaggerated respiratory effort appreciated ABDOMINAL EXAMINATION: soft, nontender, nondistended EXTREMITIES: no calf tenderness, no edema SKIN: warm, pink, dry LABORATORY DATA: Please see below. IMAGING: U/S showed viable di/di twin gestation appropriately grown PROGNOSIS: Good ACTIVITY: Bedrest, continue ambulation as needed with walker for balance. DIET: BRAT diet, encourage fresh fruits/veggies, oral hydration with electrolyte-rich beverages DISCHARGE PLAN: to home in care of friends as patient lives in [facility] at this time DISPOSITION: to home DISCHARGE INSTRUCTIONS: 1. 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 2. Take unisom/B6 and gummy vitamin at bedtime, omeprazole every morning, phenergan scheduled every 8 hours with zofran as needed 3. BRAT diet, encourage oral hydration 4. Monitor for bleeding/pain 5. Follow-up as scheduled for OB appt on 11/24/20 ITEMS TO FOLLOWUP ON ON OUTPATIENT: 1. None DISCHARGE CONDITION: Stable TIME SPENT ON DISCHARGE: Greater than 30 minutes. Vital Signs/I&Os Vital Signs Date Time Temp Pulse Resp B/P (MAP) Pulse Ox O2 Delivery O2 Flow Rate FiO2 11/22/20 08:00 98.1 52 16 97/53 (68) 98 Room Air I&O- Last 24 Hours up to 6 AM 11/22/20 05:59 Intake Total 5610 ml Output Total 3500 ml Balance 2110 ml Microbiology Microbiology 11/20/20 Urine Culture - Final, Complete 11/19/20 Urine Culture - Final, Complete Allergies Coded Allergies: Latex, Natural Rubber (Verified Allergy, Unknown, Rash, 10/17/20) JIM CASILLAS DO Nov 22, 2020 11:11
== END 2020-11-22 13:32 | disposition home or self-care (01) ==
LOC: M ED 13:51 → M PED 13:52
PROVIDERS: ADMIT Obstetrics & Gynecology; ATTEND Obstetrics & Gynecology
DX: O21.0 Mild hyperemesis gravidarum (principal); O30.041 Twin pregnancy, dichorionic/diamniotic, first trimester; Z3A.11 11 weeks gestation of pregnancy
CPT/HCPCS: 76801; 76802; 80048; 81001; 85025; 87086; 87631; 93005; 96361; 96374; 96375; 96376; 99284; J2405